=== PATIENT | female | born 1955 | race Caucasian/White ===

== ENCOUNTER 2024-02-04 14:01 | Inpatient (IN) | payer MEDICARE, OTHER ==
[~2024-02-04] VITALS: Ht 152.4 cm; Wt 84.5 kg
[2024-02-04 15:33] LABS: Urine Bacteria FEW /hpf (None Seen); Urine Blood 2+ /uL (Negative); Urine Clarity Turbid (Clear); Urine Color Colorless (Yellow); Urine Mucus FEW (None Seen); Urine Protein, UAD Negative (Negative); Urine Specific Gravity 1.009 (1.001-1.035); Urine Urobilinogen Normal (Negative); Urine WBC 7 /hpf (0 - 5); Urine pH 5.5 (5.0-9.0)
[2024-02-04] MEDS ORDERED: BACDST PO (15:42)
[2024-02-04] MEDS: SULFAMETHOX W/TRIMETH(800/160MG) DS TAB PO ONE (16:13)
[2024-02-04] MEDS: cloNIDine HCL 0.1 MG TAB PO ONE (16:34)
[2024-02-04] MEDS: SODIUM CHLORIDE 0.9% 1,000 ML IV ONE (17:06)
[2024-02-04 17:32] LABS: Basophils # (auto) 0 10 ^3/uL (0-0.2); Basophils % (auto) 0.4 % (0.0-2.0); Eosinophils # (auto) 0.1 10 ^3/uL (0-0.8); Eosinophils % (auto) 0.9 % (0.0-7.0); Hematocrit 49.5 % (36.0-46.0); Hemoglobin 16.6 g/dL (12.2-16.2); Lymphocytes # (auto) 1.4 10 ^3/uL (0.4-5.4); Lymphocytes % (auto) 15.7 % (10.0-50.0); Mean Corpuscular Hemoglobin 32.1 pg (28.0-32.0); Mean Corpuscular Hgb Conc. 33.5 g/dL (32.0-36.0); Mean Corpuscular Volume 95.5 fL (80.0-100.0); Monocytes # (auto) 0.5 10 ^3/uL (0-1.3); Monocytes % (auto) 5.2 % (0.0-12.0); Neutrophils # (auto) 7.2 10 ^3/uL (1.6-8.6); Neutrophils % (auto) 77.8 % (37.0-80.0); Nucleated Red Blood Cells % 0.1 %; Red Blood Cells 5.18 10^6/uL (4.0-5.20); Red Cell Distribution Width 14.2 % (11.8-14.3); White Blood Cell 9.2 10^3/uL (4.4-10.8)
[2024-02-04 17:37] LABS: Anion Gap 12 (5-15); Carbon Dioxide 21 mmol/L (20-30); Chloride 104 mmol/L (98-107); Potassium 4.7 mmol/L (3.5-5.1); Sodium 137 mmol/L (136-145)
[2024-02-04 17:39] LABS: Calcium 11.1 mg/dL (8.7-10.4)
[2024-02-04 17:43] LABS: BUN/Creatinine Ratio 21.7 (10.0-20.0); Blood Urea Nitrogen 18 mg/dL (9-23); Glucose 90 mg/dL (74-106)
[2024-02-04 17:48] VITALS: PULSE 74; RESP 19; O2SAT 98
[2024-02-04] MEDS ORDERED: DOCUSATE SOD 100 MG CAP PO PRN (21:30)
[2024-02-04] MEDS: FUROSEMIDE 40 MG/4 ML VIAL IV ONE (21:50)
[2024-02-04] MEDS: SODIUM CHLORIDE 0.9% 1,000 ML IV SCH (21:56)
[2024-02-04] MEDS: METOPROLOL TARTRATE 25 MG TAB PO SCH (22:56)
[2024-02-04] MEDS ORDERED: MORPHINE SULFATE INJ 2 MG/ml SYRG IV PRN (23:45)
[2024-02-04] MEDS ORDERED: NITROGLYCERIN 0.4 MG SL TAB SL PRN (23:45)
[2024-02-05] VITALS (8 sets, daily range): BP systolic 111–141; BP diastolic 56–71; PULSE 58–73; RESP 17–19; TEMP 97.6–98.5; O2SAT 92–98
[2024-02-05] MEDS: HYDROcodone-ACET 5/325MG TAB PO PRN (02:37)
[2024-02-05] MEDS ORDERED: HYDR-4902 PO (04:11)
[2024-02-05] MEDS ORDERED: CELE100C82 PO (04:12)
[2024-02-05] MEDS ORDERED: AMLO1TAB22 PO (04:12)
[2024-02-05 05:57] LABS: Basophils # (auto) 0 10 ^3/uL (0-0.2); Basophils % (auto) 0.4 % (0.0-2.0); Eosinophils # (auto) 0.1 10 ^3/uL (0-0.8); Eosinophils % (auto) 1.4 % (0.0-7.0); Hemoglobin 14.7 g/dL (12.2-16.2); Lymphocytes # (auto) 1.7 10 ^3/uL (0.4-5.4); Lymphocytes % (auto) 19.9 % (10.0-50.0); Mean Corpuscular Hemoglobin 32.4 pg (28.0-32.0); Mean Corpuscular Hgb Conc. 34.2 g/dL (32.0-36.0); Mean Corpuscular Volume 94.9 fL (80.0-100.0); Monocytes # (auto) 0.6 10 ^3/uL (0-1.3); Monocytes % (auto) 7.3 % (0.0-12.0); Nucleated Red Blood Cells % 0.2 %; Red Blood Cells 4.53 10^6/uL (4.0-5.20); Red Cell Distribution Width 14.4 % (11.8-14.3); White Blood Cell 8.5 10^3/uL (4.4-10.8)
[2024-02-05 06:16] LABS: Alanine Aminotransferase 12 U/L (7-40); Alkaline Phosphatase 94 U/L (46-116); Anion Gap 9 (5-15); BUN/Creatinine Ratio 12.2 (10.0-20.0); Blood Urea Nitrogen 11 mg/dL (9-23); Calcium 9.6 mg/dL (8.5-10.1); Carbon Dioxide 23 mmol/L (20-30); Chloride 105 mmol/L (98-107); Glucose 108 mg/dL (74-106); Potassium 3.3 mmol/L (3.5-5.1); Sodium 137 mmol/L (136-145)
[2024-02-05 06:18] LABS: Aspartate Aminotransferase 14 U/L (13-40); Bilirubin, Total 0.9 mg/dL (0.2-1.0); Total Protein 6.1 g/dL (5.7-8.2)
[2024-02-05] MEDS: amLODIPine BESYLATE 5 MG TAB PO SCH (09:06)
[2024-02-05] MEDS: levoFLOXacin 500MG 100 ML IV SCH (10:59)
[2024-02-05] MEDS: LORazepam 0.5 MG TAB PO PRN (14:41)
[2024-02-05] MEDS: CITALOPRAM HYDROBR 20 MG TAB PO ONE (23:28)
[2024-02-06] VITALS (8 sets, daily range): BP systolic 144–159; BP diastolic 66–79; PULSE 58–84; RESP 17–18; TEMP 97.2–98.3; O2SAT 94–98
[2024-02-06] MEDS: hydrALAZINE HCL 20 MG/ML VL IV PRN (06:15)
[2024-02-06] MEDS: ONDANSETRON HCL 4 MG/2 ML VIAL IV PRN (11:48)
[2024-02-06] MEDS: ACETAMINOPHEN 325 MG TAB PO PRN (12:45)
[2024-02-07] VITALS (7 sets, daily range): BP systolic 138–170; BP diastolic 66–84; PULSE 72–90; RESP 16–18; TEMP 97.1–98.6; O2SAT 95–97
[2024-02-07] MEDS ORDERED: CIPR-173 PO (08:37)
[2024-02-07] MEDS ORDERED: ONDANSETRON HCL 4 MG/2 ML VIAL IV ONE (16:15)
[2024-02-07] MEDS: ONDANSETRON ODT 4 MG TAB PO ONE (16:37)
== END 2024-02-07 15:30 | disposition home or self-care (01) | DRG 700 ==
LOC: EDBD 14:01 → ER 14:01 → TELE 23:35 → TELE-CENTR 02-05 01:45
PROVIDERS: ADMIT Nurse Practitioner Family; ATTEND Family Medicine
DX: T83.511A Infection and inflammatory reaction due to indwelling urethral catheter, initial encounter (principal); N39.0 Urinary tract infection, site not specified; I10 Essential (primary) hypertension; E83.52 Hypercalcemia; F32.A Depression, unspecified; E86.0 Dehydration; R33.9 Retention of urine, unspecified; F03.90 Unspecified dementia, unspecified severity, without behavioral disturbance, psychotic disturbance, mood disturbance, and anxiety; Z88.0 Allergy status to penicillin; Z80.1 Family history of malignant neoplasm of trachea, bronchus and lung
CPT/HCPCS: 36415; 74176; 80048; 80053; 81001; 85025; 87086; 87088; 87186; G0378; J1956; J2405; Q0162

== ENCOUNTER 2024-02-15 10:17 | Emergency (ER) | payer MEDICARE ==
[~2024-02-15] VITALS: Ht 152.4 cm; Wt 77.1 kg
[~2024-02-15 10:17] MED LIST: AMLO1TAB22 PO; BACDST PO; CELE100C82 PO; CIPR-173 PO; HYDR-4902 PO
[2024-02-15 12:54] VITALS: BP 138/65; PULSE 66; RESP 16; TEMP 97.8; O2SAT 98
== END 2024-02-15 12:59 | disposition home or self-care (01) ==
LOC: ER 10:17
DX: R33.9 Retention of urine, unspecified (principal); I10 Essential (primary) hypertension; F03.90 Unspecified dementia, unspecified severity, without behavioral disturbance, psychotic disturbance, mood disturbance, and anxiety; Z88.0 Allergy status to penicillin
CPT/HCPCS: 51702

== ENCOUNTER 2024-03-16 10:41 | Inpatient (IN) | payer MEDICARE, OTHER ==
[~2024-03-16] VITALS: Ht 152.4 cm; Wt 74.8 kg
[2024-03-16 11:49] LABS: Basophils # (auto) 0.1 10 ^3/uL (0-0.2); Basophils % (auto) 0.7 % (0.0-2.0); Eosinophils # (auto) 0.1 10 ^3/uL (0-0.8); Eosinophils % (auto) 0.8 % (0.0-7.0); Hematocrit 44.8 % (36.0-46.0); Hemoglobin 15.4 g/dL (12.2-16.2); Lymphocytes # (auto) 1.5 10 ^3/uL (0.4-5.4); Mean Corpuscular Hemoglobin 33.1 pg (28.0-32.0); Mean Corpuscular Hgb Conc. 34.3 g/dL (32.0-36.0); Mean Corpuscular Volume 96.4 fL (80.0-100.0); Monocytes # (auto) 0.7 10 ^3/uL (0-1.3); Monocytes % (auto) 7.4 % (0.0-12.0); Neutrophils # (auto) 6.7 10 ^3/uL (1.6-8.6); Neutrophils % (auto) 74.1 % (37.0-80.0); Platelet Count (auto) 300 10^3/uL (140-450); Red Blood Cells 4.65 10^6/uL (4.0-5.20); Red Cell Distribution Width 14.4 % (11.8-14.3)
[2024-03-16 12:31] LABS: Chloride 106 mmol/L (98-107); Potassium 3.4 mmol/L (3.5-5.1); Sodium 139 mmol/L (136-145)
[2024-03-16 12:32] LABS: Anion Gap 7 (5-15); Calcium 10.3 mg/dL (8.7-10.4); Carbon Dioxide 26 mmol/L (20-30)
[2024-03-16 12:37] LABS: BUN/Creatinine Ratio 11.2 (10.0-20.0); Blood Urea Nitrogen 10 mg/dL (9-23); Glucose 104 mg/dL (74-106)
[2024-03-16 15:03] LABS: Urine Bacteria FEW /hpf (None Seen); Urine Blood TRACE /uL (Negative); Urine Clarity Turbid (Clear); Urine Color Colorless (Yellow); Urine Protein, UAD Negative (Negative); Urine Specific Gravity 1.013 (1.001-1.035); Urine Urobilinogen Normal (Negative); Urine WBC 44 /hpf (0 - 5); Urine pH 6.5 (5.0-9.0)
[2024-03-16] MEDS ORDERED: ONDANSETRON HCL 4 MG/2 ML VIAL IV PRN (15:30)
[2024-03-16] MEDS ORDERED: ACETAMINOPHEN 325 MG TAB PO PRN (15:30)
[2024-03-16] MEDS: POTASSIUM CHL 20 Meq TABLET PO ONE (16:05)
[2024-03-16] MEDS: levoFLOXacin 500MG 100 ML IV ONE (16:06)
[2024-03-16 20:04] VITALS: BP 154/75; PULSE 72; PULSE 88; RESP 20; TEMP 97.9; O2SAT 98
[2024-03-16] MEDS ORDERED: CITA10TA5 PO (21:51)
[2024-03-17] VITALS (8 sets, daily range): BP systolic 117–185; BP diastolic 55–72; PULSE 67–83; RESP 17–20; TEMP 97.6–98.5; O2SAT 94–99
[2024-03-17 06:40] LABS: Basophils # (auto) 0.1 10 ^3/uL (0-0.2); Eosinophils # (auto) 0.2 10 ^3/uL (0-0.8); Eosinophils % (auto) 3.9 % (0.0-7.0); Hematocrit 40.7 % (36.0-46.0); Hemoglobin 13.8 g/dL (12.2-16.2); Lymphocytes # (auto) 1.8 10 ^3/uL (0.4-5.4); Lymphocytes % (auto) 30.4 % (10.0-50.0); Mean Corpuscular Hemoglobin 32.9 pg (28.0-32.0); Mean Corpuscular Volume 96.9 fL (80.0-100.0); Monocytes # (auto) 0.6 10 ^3/uL (0-1.3); Monocytes % (auto) 9.4 % (0.0-12.0); Neutrophils # (auto) 3.4 10 ^3/uL (1.6-8.6); Neutrophils % (auto) 55.3 % (37.0-80.0); Nucleated Red Blood Cells % 0.2 %; Platelet Count (auto) 244 10^3/uL (140-450); Red Cell Distribution Width 14.6 % (11.8-14.3); White Blood Cell 6.1 10^3/uL (4.4-10.8)
[2024-03-17 06:49] LABS: Chloride 111 mmol/L (98-107); Potassium 3.7 mmol/L (3.5-5.1); Sodium 141 mmol/L (136-145)
[2024-03-17 06:50] LABS: Anion Gap 3 (5-15); Carbon Dioxide 27 mmol/L (20-30)
[2024-03-17 06:51] LABS: Calcium 9.7 mg/dL (8.7-10.4)
[2024-03-17 06:55] LABS: BUN/Creatinine Ratio 14.9 (10.0-20.0); Blood Urea Nitrogen 13 mg/dL (9-23); Glucose 94 mg/dL (74-106)
[2024-03-17] MEDS: levoFLOXacin 500MG 100 ML IV SCH (10:21)
[2024-03-17] MEDS: amLODIPine BESYLATE 5 MG TAB PO SCH (10:22)
[2024-03-17] MEDS: HYDROcodone-ACET 5/325MG TAB PO PRN (22:57)
[2024-03-18] VITALS (7 sets, daily range): BP systolic 139–173; BP diastolic 69–89; PULSE 68–89; RESP 16–19; TEMP 98–98.9; O2SAT 95–97
[2024-03-18] MEDS: diphenhdrAMINE HCL 50 MG/1 ML VL IV PRN (01:52)
[2024-03-19] VITALS (7 sets, daily range): BP systolic 151–164; BP diastolic 68–90; PULSE 68–87; RESP 15–18; TEMP 97.9–98.8; O2SAT 96–98
[2024-03-19] MEDS: BACLOFEN 10 MG TAB PO ONE (01:32)
[2024-03-20] VITALS (7 sets, daily range): BP systolic 125–160; BP diastolic 66–83; PULSE 67–78; RESP 15–20; TEMP 36.8; O2SAT 94–99
[2024-03-20] MEDS ORDERED: CIPR-173 PO (12:08)
== END 2024-03-20 17:50 | disposition home or self-care (01) | DRG 700 ==
LOC: ER 10:41 → OVERFLOW 15:36 → WEST WING 19:48
PROVIDERS: ADMIT Nurse Practitioner; ATTEND Family Medicine
DX: T83.518A Infection and inflammatory reaction due to other urinary catheter, initial encounter (principal); E86.0 Dehydration; I10 Essential (primary) hypertension; N31.9 Neuromuscular dysfunction of bladder, unspecified; F03.90 Unspecified dementia, unspecified severity, without behavioral disturbance, psychotic disturbance, mood disturbance, and anxiety; R33.8 Other retention of urine; Z88.0 Allergy status to penicillin; Z80.1 Family history of malignant neoplasm of trachea, bronchus and lung
CPT/HCPCS: 36415; 80048; 81001; 85025; 87040; 87086; 87088; 87186; G0378; J1956

== ENCOUNTER 2024-04-13 02:03 | Emergency (ER) | payer MEDICARE ==
[~2024-04-13] VITALS: Ht 152.4 cm; Wt 77.2 kg
[~2024-04-13 02:03] MED LIST changes: +CITA10TA5 PO
[2024-04-13 02:38] VITALS: BP 148/66; PULSE 75; RESP 18; TEMP 98.8; O2SAT 96
[2024-04-13 03:19] LABS: Urine Bacteria None Seen /hpf (None Seen)
[2024-04-13 03:41] LABS: Urine Amorphous Crystal MOD /hpf (None Seen); Urine Blood TRACE /uL (Negative); Urine Clarity Turbid (Clear); Urine Color Colorless (Yellow); Urine Protein, UAD Negative (Negative); Urine Specific Gravity 1.009 (1.001-1.035); Urine Urobilinogen Normal (Negative); Urine WBC 14 /hpf (0 - 5); Urine pH 6.5 (5.0-9.0)
[2024-04-13] MEDS ORDERED: CIPR500T4 PO (04:26)
== END 2024-04-13 05:40 | disposition home or self-care (01) ==
LOC: ER 02:03
DX: N39.0 Urinary tract infection, site not specified (principal); R33.9 Retention of urine, unspecified; I10 Essential (primary) hypertension; Z46.6 Encounter for fitting and adjustment of urinary device; Z88.0 Allergy status to penicillin
CPT/HCPCS: 51702; 81001

== ENCOUNTER 2024-05-29 16:16 | Emergency (ER) | payer MEDICARE ==
[~2024-05-29] VITALS: Ht 152.4 cm; Wt 77.2 kg
[~2024-05-29 16:16] MED LIST changes: +CIPR500T4 PO
[2024-05-29 18:04] VITALS: BP 159/75; PULSE 79; RESP 16; TEMP 98.5; O2SAT 97
[2024-05-29 19:59] LABS: Urine Bacteria FEW /hpf (None Seen); Urine Blood 2+ /uL (Negative); Urine Clarity Turbid (Clear); Urine Color Colorless (Yellow); Urine Mucus FEW (None Seen); Urine Protein, UAD TRACE (Negative); Urine Specific Gravity 1.018 (1.001-1.035); Urine Urobilinogen Normal (Negative); Urine WBC 342 /hpf (0 - 5)
[2024-05-29] MEDS ORDERED: CIPR-173 PO (20:15)
== END 2024-05-29 20:32 | disposition home or self-care (01) ==
LOC: ER 16:16
DX: T83.098D Other mechanical complication of other urinary catheter, subsequent encounter (principal); I10 Essential (primary) hypertension; Z88.0 Allergy status to penicillin; Z79.899 Other long term (current) drug therapy
CPT/HCPCS: 51702; 81001

== ENCOUNTER 2024-07-14 00:05 | Emergency (ER) | payer MEDICARE ==
[~2024-07-14] VITALS: Ht 177.8 cm; Wt 77.2 kg
[2024-07-14 01:02] VITALS: BP 144/75; PULSE 92; RESP 17; O2SAT 98
--- NOTE | 2024-07-14 01:46 | ED.PDOC ---
Pascale. trauma (HPI) HPI Comments 68-year-old female who came to ER for fall injury. Patient states she was at home earlier, she felt dizzy and lightheaded, and she fell down hitting her head on the tile floor. Noted 6 cm laceration on her right frontal area. Denies any loss of consciousness, but patient felt nauseated and vomited 4 times. Patient is not on blood thinners Chief Complaint: Fall Injury Time Seen by MD: 01:45 Primary Care Provider: KENNY Aleman notes: Nurses Notes Allergies: Coded Allergies: Penicillins (Verified Allergy, Unknown, 02/04/24) Home Meds Active Scripts Ciprofloxacin Hcl (Cipro) 500 Mg Tab, 500 MG PO BID for 7 Days, #14 CAP Prov:SIENNA SHIPMAN DO 05/29/24 Ciprofloxacin Hcl (Ciprofloxacin Hcl) 500 Mg Tab, 1 TAB PO BID for 7 Days, #14 TAB Prov:PAT MAYP 04/13/24 Ciprofloxacin Hcl (Cipro) 500 Mg Tab, 1 TAB PO BID, #20 TAB Prov:ANDRE FAULKNER MD 03/20/24 Ciprofloxacin Hcl (Cipro) 500 Mg Tab, 1 TAB PO BID, #14 TAB Prov:ANDRE FAULKNER MD 02/07/24 Sulfamethoxazole W/Trimethopri (Bactrim Ds Tablet) 1 Tab Tb, 1 TAB PO BID for 7 Days, #14 TAB Prov:ZHANE BEAL MD 02/04/24 Reported Medications Citalopram Hydrobromide (Citalopram Hydrobromide) 10 Mg Tab, MG PO DAILY for 30 Days, MG 03/16/24 Amlodipine Besylate (Amlodipine Besylate) 5 Mg Tab, 5 MG PO DAILY for 30 Days, MG 02/05/24 Celecoxib (Celebrex) 100 Mg Cap, 100 MG PO DAILY for 30 Days, MG 02/05/24 Hydrocodone-Acetaminophen (Hydrocodone Bitartrate/AC 5-325 mg) 1 Tab Tab, 1 TAB PO Q6HP, TAB 02/05/24 Information Source: Patient, Relative Mode of Arrival: Wheelchair Severity: Moderate Timing: Minutes Duration: Since onset Prehospital treatment: None Location: Face (Right forehead) Location of laceration: Head (Right forehead) Mechanism: Fall Associated signs and symtoms: Headache Past Medical History PAST MEDICAL HISTORY: Dementia, HTN Surgical History: Denies all surgeries 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 Hx Family History Family History: Unknown Social History Smoker: Non-Smoker Alcohol: Denies ETOH Use Drugs: Denies Drug Use Lives In: Home Constitutional: denies: chills, diaphoresis, fatigue, fever, malaise, sweats, weakness, others EENTM: denies: blurred vision, double vision, ear bleeding, ear discharge, ear drainage, ear pain, ear ringing, eye pain, eye redness, hearing loss, mouth pain, mouth swelling, nasal discharge, nose bleeding, nose congestion, nose pain, photophobia, tearing, throat pain, throat swelling, voice changes, others Respiratory: denies: cough, hemoptysis, orthopnea, SOB at rest, shortness of breath, SOB with excertion, stridor, wheezing, others Cardiovascular: denies: chest pain, dizzy spells, diaphoresis, Dyspnea on exertion, edema, irregular heart beat, left arm pain, lightheadedness, palpitations, PND, syncope, others Gastrointestinal: denies: abdomen distended, abdominal pain, blood streaked bowels, constipated, diarrhea, dysphagia, difficulty swallowing, hematemesis, melena, nausea, poor appetite, poor fluid intake, rectal bleeding, rectal pain, vomiting, others Genitourinary: denies: abnormal vagina bleeding, burning, dyspareunia, dysuria, flank pain, frequency, hematuria, incontinence, pain, , vagina discha rge, urgency, others Neurological: reports: headache; denies: dizziness, fainting, left sided numbness, left sided weakness, numbness, paresthesia, pre-existing deficit, right sided numbness, right sided weakness, seizure, speech problems, tingling, tremors, weakness, others Musculoskeletal: denies: back pain, gout, joint pain, joint swelling, muscle pain, muscle stiffness, neck pain, others Integumetry: reports: laceration; denies: bruises, change in color, change in hair/nails, dryness, lesions, lumps, rash, wounds, others Allergic/Immunocompromised: denies: Difficulty Healing, Frequent Infections, Hives, Itching, others Hematologic/Lymphatic: denies: anemia, blood clots, easy bleeding, easy bruising, swollen glands, others Endocrine: denies: excessive hunger, excessive sweating, excessive thirst, excessive urination, flushing, intolerance to cold, intolerance to heat, unexplained weight gain, unexplained weight loss, others Psychiatric: denies: anxiety, bipolar disorder, depression, hopeless, panic disorder, schizophrenia, sleepless, suicidal, others Physical Exam General Appearance: No Apparent Distress, Normal HEENT: Normal ENT Inspection, Pharynx Normal, TMs Normal Neck: Full Range of Motion, Non-Tender, Normal, Normal Inspection Respiratory: Chest Non-Tender, Lungs Clear, No Accessory Muscle Use, No Respiratory Distress, Normal Breath Sounds Cardiovascular: No Edema, No JVD, No Murmur, No Gallop, Normal Peripheral Pulses, Regular Rate/Rhythm Breast Exam: Deferred Gastrointestinal: No Organomegaly, Non Tender, No Pulsatile Mass, Normal Bowel Sounds, Soft Genitalia: Deferred Pelvic: Deferred Rectal: Deferred Extremities: No calf tenderness, Normal capillary refill, Normal inspection, Normal range of motion, Non-tender, No pedal edema Musculoskeletal : Apperance: Normal Neurologic: Alert, polysomnography technician II-XII nml as Tested, No Motor Deficits, Normal Affect, Normal Mood, No Sensory Deficits Cerebellar Function: Normal Reflexes: Normal Skin: Dry, Normal Color, Warm Lymphatic: No Adenopathy Was a procedure done? Was a procedure done?: Yes Sedation Sedation?: No Laceration Repair : Location Right forehead Length 6 cm Anesthetic: Lidocaine Laceration Repair Prep: Betadine Laceration Repair Wound Comple: epidermis/dermis repair Laceration Repair: Number of sutures (12), Skin, SQ, Nylon Informed consent obtained: Yes Risks, benefits, and alternati: Yes Differential Diagnosis Multiple Trauma: Closed Head Injury, Fractures, Cerebral Contusion, Spine Injury, Hematoma, Laceration Neck Injury: Cervical Sprain, Cervical Strain X-Ray, Labs, Meds, VS Vital Signs Date Time Temp Pulse Resp B/P (MAP) Pulse Ox O2 Delivery O2 Flow Rate FiO2 07/14/24 01:02 98.4 92 17 144/75 (98) 98 Lab Test 07/14/24 00:53 Range/Units POC Glucose 125 H 70-106 mg/dl CT MAXILLOFACIAL WITHOUT FINDINGS: No discrete fracture. The nasal bone appears intact. The mandible appears unremarkable. The paranasal sinuses are well aerated. Orbital structures appear intact. Mastoid air cells are well aerated. IMPRESSION: No acute findings. Head laceration with repair. His CT was normal. Time of 1ST Reevaluation: 01:42 Reevaluation 1ST: Unchanged Patient Education/Counseling: Diagnosis, Treatment Family Education/Counseling: Diagnosis, Treatment Departure 1 Departure Time of Disposition: 05:44 Impression: Primary Impression: Ground-level fall Additional Impression: Forehead laceration Qualified Codes: S01.81XA - Laceration without foreign body of other part of head, initial encounter Disposition: HOME / SELF CARE / HOMELESS Condition: Stable Additional Instructions: Reassessed patient, vital signs stable. Denies any new symptoms. Patient is able to tolerate PO and ambulate/be mobile at their baseline without concern. Risks and benefits of all medications given or prescribed, if any, discussed. All lab work, imaging and diagnostic studies were reviewed by me. The patient was counseled extensively on my clinical impression, diagnosis, expected course of the disease, and plan, including their follow-up care. Will discharge patient. Patient instructed to follow up with Primary Care Physician within 24-48 hours. Strict return precautions given for further exacerbation of symptoms or for new symptoms. The patient was given the opportunity to ask questions and all questions were answered by myself and the nursing/tech staff. Patient is in agreement with the care plan. The patient verbally expressed understanding of the discharge instructions, including the reasons to return to the Emergency Department. Return to the emergency room in two days for wound check, seven days for suture removal Discharged With: Self Critical Care Note Critical Care Time?: No Stability Stability form required: No Heart Score Heart Score: Heart Score Response (Comments) Value History N/A 0 EKG N/A 0 Age N/A 0 Risk Factors N/A 0 Troponin N/A 0 Total 0 I personally scribed for ROSSI WEST MD ([email or web address]) on 07/14/24 at 01:46. Chapis ctronically submitted by Surya Hernandez ([email or web address]). I personally scribed for ROSSI WEST MD ([email or web address]) on 07/14/24 at 04:44. Electronically submitted by Surya Hernandez ([email or web address]). ROSSI WEST MD Jul 14, 2024 01:46
--- NOTE | 2024-07-14 04:42 | DVH ---
CT MAXILLOFACIAL WITHOUT INDICATION: FALL EXAM DATE: 07/14/2024 02:35 AM COMPARISON: None RADIATION DOSE: DLP: 1257.8 mGy*cm Technique: Using the CT scanner, contiguous noncontrast scans were of the maxillofacial region. Coron al and sagittal reformatted images were then generated. All CT scans at this medical facility are performed using dose modulation techniques as appropriate t o a performed exam including the following: Automated exposure control was utilized; adjustment of th e MA and/or KV according to patient size; and use of iterative reconstruction technique. FINDINGS: No discrete fracture. The nasal bone appears intact. The mandible appears unremarkable. The parana ele sinuses are well aerated. Orbital structures appear intact. Mastoid air cells are well aerated. IMPRESSION: No acute findings.
== END 2024-07-14 06:09 | disposition home or self-care (01) ==
LOC: ER 00:05
DX: S01.81XA Laceration without foreign body of other part of head, initial encounter (principal); I10 Essential (primary) hypertension; R42 Dizziness and giddiness; F03.90 Unspecified dementia, unspecified severity, without behavioral disturbance, psychotic disturbance, mood disturbance, and anxiety; Z79.1 Long term (current) use of non-steroidal anti-inflammatories (NSAID); Z79.899 Other long term (current) drug therapy; Z88.0 Allergy status to penicillin; W18.30XA Fall on same level, unspecified, initial encounter; Y93.89 Activity, other specified; Y92.89 Other specified places as the place of occurrence of the external cause; Y99.8 Other external cause status
CPT/HCPCS: 12014; 70486; 82962

== ENCOUNTER 2024-07-23 15:20 | Emergency (ER) | payer MEDICARE ==
[~2024-07-23] VITALS: Ht 152.4 cm; Wt 77.0 kg
--- NOTE | 2024-07-23 16:13 | ED.PDOC ---
General HPI Comments 68 year old female presents to the ED with chief complaint of urinary retention and suture removal. Patient reports that she has been unable to urinate for the past 24 hours and believes she has a UTI. Patient relays that she had a similar problem in the past and needed to have a Hale catheter placed and be treated for a UTI. Patient states she also has sutures to her face from a previous fall 10 days ago and requests them to be removed as it has been 10 days since the sutures were placed. Patient denies any dysuria, abdominal pain, fever, chills, dizziness, chest pain, or hematuria. Chief Complaint: Urinary Time Seen by MD: 16:11 Primary Care Provider: KENNY Aleman notes: Nurses Notes, Medications, Allergies Allergies: Coded Allergies: Penicillins (Verified Allergy, Unknown, 02/04/24) Home Meds Active Scripts Ciprofloxacin Hcl (Cipro) 500 Mg Tab, 500 MG PO BID for 7 Days, #14 CAP Prov:SIENNA SHIPMAN DO 05/29/24 Ciprofloxacin Hcl (Ciprofloxacin Hcl) 500 Mg Tab, 1 TAB PO BID for 7 Days, #14 TAB Prov:PAT MAY 04/13/24 Ciprofloxacin Hcl (Cipro) 500 Mg Tab, 1 TAB PO BID, #20 TAB Prov:ANDRE FAULKNER MD 03/20/24 Ciprofloxacin Hcl (Cipro) 500 Mg Tab, 1 TAB PO BID, #14 TAB Prov:ANDRE FAULKNER MD 02/07/24 Sulfamethoxazole W/Trimethopri (Bactrim Ds Tablet) 1 Tab Tb, 1 TAB PO BID for 7 Days, #14 TAB Prov:ZHANE BEAL MD 02/04/24 Reported Medications Citalopram Hydrobromide (Citalopram Hydrobromide) 10 Mg Tab, MG PO DAILY for 30 Days, MG 03/16/24 Amlodipine Besylate (Amlodipine Besylate) 5 Mg Tab, 5 MG PO DAILY for 30 Days, MG 02/05/24 Celecoxib (Celebrex) 100 Mg Cap, 100 MG PO DAILY for 30 Days, MG 02/05/24 Hydrocodone-Acetaminophen (Hydrocodone Bitartrate/AC 5-325 mg) 1 Tab Tab, 1 TAB PO Q6HP, TAB 02/05/24 Information Source: Patient, Relative (Son) Mode of Arrival: Ambulatory Severity: Moderate Inability to void: Complete Timing: Days Duration: Since onset Has not urinated for: Hours Prehospital treatment: None Onset: Spontaneous Symptoms: Inability to void History of: UTI Location: None Modifying factors: None associated signs and symptoms: Inability to Void Past Medical History PAST MEDICAL HISTORY: Dementia, HTN, UTI'S Surgical History: Denies all surgeries 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 ENGINEER CONDUCTOR Hx Family History Family History: Unknown Social History Smoker: Non-Smoker Alcohol: Denies ETOH Use Drugs: Denies Drug Use Lives In: Home Constitutional: denies: chills, diaphoresis, fatigue, fever, malaise, sweats, weakness, others EENTM: denies: blurred vision, double vision, ear bleeding, ear discharge, ear drainage, ear pain, ear ringing, eye pain, eye redness, hearing loss, mouth pain, mouth swelling, nasal discharge, nose bleeding, nose congestion, nose pain, photophobia, tearing, throat pain, throat swelling, voice changes, others Respiratory: denies: cough, hemoptysis, orthopnea, SOB at rest, shortness of breath, SOB with excertion, stridor, wheezing, others Cardiovascular: denies: chest pain, dizzy spells, diaphoresis, Dyspnea on exertion, edema, irregular heart beat, left arm pain, lightheadedness, palpitations, PND, syncope, others Gastrointestinal: denies: abdomen distended, abdominal pain, blood streaked bowels, constipated, diarrhea, dysphagia, difficulty swallowing, hematemesis, melena, nausea, poor appetite, poor fluid intake, rectal bleeding, rectal pain, vomiting, others Genitourinary: reports: others (urinary retention); denies: abnormal vagina bleeding, burning, dyspareunia, dysuria, flank pain, frequency, hematuria, incontinence, pain, , vagina discharge, urgency Neurological: denies: dizziness, fainting, headache, left sided numbness, left sided weakness, numbness, paresthesia, pre-existing deficit, right sided numbness, right sided weakness, seizure, speech problems, tingling, tremors, weakness, others Musculoskeletal: denies: back pain, gout, joint pain, joint swelling, muscle pain, muscle stiffness, neck pain, others Integumetry: denies: bruises, change in color, change in hair/nails, dryness, laceration, lesions, lumps, rash, wounds, others Allergic/Immunocompromised: denies: Difficulty Healing, Frequent Infections, Hives, Itching, others Hematologic/Lymphatic: denies: anemia, blood clots, easy bleeding, easy bruising, swollen glands, others Endocrine: denies: excessive hunger, excessive sweating, excessive thirst, excessive urination, flushing, intolerance to cold, intolerance to heat, unexplained weight gain, unexplained weight loss, others Psychiatric: denies: anxiety, bipolar disorder, depression, hopeless, panic disorder, schizophrenia, sleepless, suicidal, others All Other Systems: Reviewed and Negative Physical Exam General Appearance: Mild Distress, Obese HEENT: Normal ENT Inspection, PERRL/EOMI Neck: Full Range of Motion, Non-Tender, Normal, Normal Inspection Respiratory: Chest Non-Tender, Lungs Clear, No Accessory Muscle Use, No Respiratory Distress, Normal Breath Sounds Cardiovascular: No Edema, No JVD, No Murmur, No Gallop, Normal Peripheral Pulses, Regular Rate/Rhythm Breast Exam: Deferred Gastrointestinal: No Organomegaly, No Pulsatile Mass, Normal Bowel Sounds, Soft, Suprapubic, Tenderness Genitalia: Deferred Pelvic: Deferred Rectal: Deferred Extremities: No calf tenderness, Normal capillary refill, Normal inspection, Normal range of motion, Non-tender, No pedal edema Neurologic: Alert, casting technician II-XII nml as Tested, No Motor Deficits, Normal Affect, Normal Mood, No Sensory Deficits Cerebellar Function: Normal Reflexes: Normal Skin: Dry, Lacerations (For head laceration from a fall 10 years ago healing well may have sutures removed), Normal Color, Warm Peripheral Pulses: 1+ carotid (R), 1+ carotid (L) Lymphatic: No Adenopathy Was a procedure done? Was a procedure done?: Yes Sedation Sedation?: No Other Procedure Procedure Ten days ago the patient fell and lacerated her forehead sutures were done Today in the emergency department for another reason patient presented with a suture that need to be removed Sutures removed no issues Differential Diagnosis Kidney stone (Female): Urinary obstruction Kidney stone (Male): N/A Penile/Scrotal: N/A Urinary Problem (Male): N/A Urinary Problem (Female): Urinary retention, UTI X-Ray, Labs, Meds, VS Vital Signs Date Time Temp Pulse Resp B/P (MAP) Pulse Ox O2 Delivery O2 Flow Rate FiO2 07/23/24 15:57 98.0 86 18 136/76 (96) 97 Lab Test 07/23/24 17:07 07/23/24 16:17 Range/Units White Blood Count 12.5 H 4.4-10.8 10^3/uL Red Blood Count 4.58 4.0-5.20 10^6/uL Hemoglobin 15.0 12.2-16.2 g/dL Hematocrit 46.2 H 36.0-46.0 % Mean Corpuscular Volume 100.9 H 80.0-100.0 fL Mean Corpuscular Hemoglobin 32.7 H 28.0-32.0 pg Mean Corpuscular Hemoglobin Concent 32.4 32.0-36.0 g/dL Red Cell Distribution Width 13.5 11.8-14.3 % Platelet Count 289 140-450 10^3/uL Mean Platelet Volume 7.9 6.9-10.8 fL Neutrophils (%) (Auto) 82.8 H 37.0-80.0 % Lymphocytes (%) (Auto) 11.8 10.0-50.0 % Monocytes (%) (Auto) 4.7 0.0-12.0 % Eosinophils (%) (Auto) 0.4 0.0-7.0 % Basophils (%) (Auto) 0.3 0.0-2.0 % Neutrophils # (Auto) 10.4 H 1.6-8.6 10 ^3/uL Lymphocytes # (Auto) 1.5 0.4-5.4 10 ^3/uL Monocytes # (Auto) 0.6 0-1.3 10 ^3/uL Eosinophils # (Auto) 0 0-0.8 10 ^3/uL Basophils # (Auto) 0 0-0.2 10 ^3/uL Nucleated Red Blood Cells 0.0 % Sodium Level 140 136-145 mmol/L Potassium Level 3.7 3.5-5.1 mmol/L Chloride Level 107 98-107 mmol/L Carbon Dioxide Level 25 20-31 mmol/L Anion Gap 8 5-15 Blood Urea Nitrogen 17 9-23 mg/dL Creatinine 0.82 0.550-1.02 mg/dL Glomerular Filtration Rate Calc 79 >90 mL/min BUN/Creatinine Ratio 20.7 H 10.0-20.0 Serum Glucose 125 H 74-106 mg/dL Calcium Level 10.7 H 8.7-10.4 mg/dL Magnesium Level 2.2 1.6-2.6 mg/dL Total Bilirubin 0.9 0.2-1.0 mg/dL Aspartate Amino Transferase (AST) 21 13-40 U/L Alanine Aminotransferase (ALT) 32 7-40 U/L Alkaline Phosphatase 119 H 46-116 U/L Total Protein 7.0 5.7-8.2 g/dL Albumin 4.5 3.2-4.8 g/dL Lipase 38 12-53 U/L Urine Color Light-yellow Yellow Urine Clarity Clear Clear Urine pH 6.0 5.0-9.0 Urine Specific [place] 1.012 1.001-1.035 Urine Protein Negative Negative Urine Ketones Negative Negative Urine Blood Negative Negative /uL Urine Nitrite Negative Negative Urine Bilirubin Negative Negative Urine Urobilinogen Normal Negative mg/dL Urine Leukocyte Esterase Negative Negative /uL Urine RBC 2 0 - 4 /hpf Urine WBC 2 0 - 5 /hpf Urine Squamous Epithelial Cells None seen <5 /hpf Urine Bacteria None seen None Seen /hpf Urine Glucose Normal Normal mg/dL Current Medications Medications (Trade) Dose Ordered Sig/Penelope Route Start Time Stop Time Status Last Admin Ceftriaxone Sodium 50 ml @ 100 mls/hr ONCE ONCE IV 07/23/24 17:45 07/23/24 18:14 07/23/24 17:59 X-Ray, Labs, Meds, VS Comment Course in the emergency department eventful patient came in because of a urinary retention and also for suture removal on the laceration Patient has history of hypertension and depression A Hale catheter was inserted and large amount of urine [place] [id number] with 82 0.5 and microcytosis CMP is normal except for sugar of 125 Lipase 38 Urine negative Magnesium 2.2 Patient will have a Hale catheter and leg bag which she will keep for few days and will follow up for removal Time of 1ST Reevaluation: 17:11 Reevaluation 1ST: Unchanged Time of 2ND Reevaluation: 18:06 Reevaluation 2ND: Improved Patient Education/Counseling: Diagnosis, Treatment Family Education/Counseling: Diagnosis, Treatment Additional Information - I reviewed the following notes from patient's past medical encounters: - The following tests were ordered, and results were reviewed by me: (Labs, X- Ray, EKG) - Additional information was gathered from interviewing the following independent Historian: (Family, Other Providers, EMT) - I reviewed and agreed with the following test results read by other provider: (X-ray, CT, US) - I discussed treatments and results with medical personnel and: (consultants, family) Departure 1 Departure Time of Disposition: 18:07 Impression: Primary Impression: Acute urinary retention Additional Impression: History of hypertension Disposition: HOME / SELF CARE / HOMELESS Condition: Fair Additional Instructions: Push fluids and follow up with the urologist e-Prescriptions Ciprofloxacin Hcl (Ciprofloxacin Hcl) 500 Mg Tab 1 TAB PO BID for 7 Days, #14 TAB Prov: ALFONSO PAT MD 07/23/24 Discharged With: Self, Spouse Critical Care Note Critical Care Time?: No Stability Stability form required: No Heart Score Heart Score: Heart Score Response (Comments) Value History N/A 0 EKG N/A 0 Age >65 2 Risk Factors 1 or 2 risk factors 1 Troponin N/A 0 Total 3 I personally scribed for ALFONSO PAT MD ([email or web address]) on 07/23/24 at 16:13. Electronically submitted by Moi Burns ([email or web address]). ALFONSO PAT MD Jul 23, 2024 16:13
[2024-07-23] MEDS: SODIUM CHLORIDE 0.9% 1,000 ML IV ONE (16:26)
[2024-07-23 16:33] LABS: Urine Bacteria None Seen /hpf (None Seen)
[2024-07-23 16:37] LABS: Urine Blood Negative /uL (Negative); Urine Clarity Clear (Clear); Urine Color Light-Yellow (Yellow); Urine Protein, UAD Negative (Negative); Urine Specific Gravity 1.012 (1.001-1.035); Urine Urobilinogen Normal (Negative); Urine WBC 2 /hpf (0 - 5)
[2024-07-23 17:50] LABS: Basophils # (auto) 0 10 ^3/uL (0-0.2); Basophils % (auto) 0.3 % (0.0-2.0); Eosinophils # (auto) 0 10 ^3/uL (0-0.8); Eosinophils % (auto) 0.4 % (0.0-7.0); Hematocrit 46.2 % (36.0-46.0); Lymphocytes # (auto) 1.5 10 ^3/uL (0.4-5.4); Lymphocytes % (auto) 11.8 % (10.0-50.0); Mean Corpuscular Hemoglobin 32.7 pg (28.0-32.0); Mean Corpuscular Hgb Conc. 32.4 g/dL (32.0-36.0); Mean Corpuscular Volume 100.9 fL (80.0-100.0); Monocytes # (auto) 0.6 10 ^3/uL (0-1.3); Monocytes % (auto) 4.7 % (0.0-12.0); Neutrophils # (auto) 10.4 10 ^3/uL (1.6-8.6); Neutrophils % (auto) 82.8 % (37.0-80.0); Platelet Count (auto) 289 10^3/uL (140-450); Red Blood Cells 4.58 10^6/uL (4.0-5.20); Red Cell Distribution Width 13.5 % (11.8-14.3); White Blood Cell 12.5 10^3/uL (4.4-10.8)
[2024-07-23] MEDS: cefTRIAXone 1GM/50ML D5W 50 ML IV ONE (17:59)
[2024-07-23 18:00] VITALS: PULSE 77; RESP 17; O2SAT 94
[2024-07-23 18:01] LABS: Alanine Aminotransferase 32 U/L (7-40); Albumin 4.5 g/dL (3.2-4.8); Anion Gap 8 (5-15); Aspartate Aminotransferase 21 U/L (13-40); BUN/Creatinine Ratio 20.7 (10.0-20.0); Blood Urea Nitrogen 17 mg/dL (9-23); Carbon Dioxide 25 mmol/L (20-31); Chloride 107 mmol/L (98-107); Lipase 38 U/L (12-53); Magnesium 2.2 mg/dL (1.6-2.6); Potassium 3.7 mmol/L (3.5-5.1); Sodium 140 mmol/L (136-145)
[2024-07-23 18:02] LABS: Bilirubin, Total 0.9 mg/dL (0.2-1.0)
[2024-07-23 18:03] LABS: Alkaline Phosphatase 119 U/L (46-116); Calcium 10.7 mg/dL (8.7-10.4); Glucose 125 mg/dL (74-106)
[2024-07-23 18:05] VITALS: BP 118/54; PULSE 77; RESP 17; TEMP 98; O2SAT 94
[2024-07-23] MEDS ORDERED: CIPR500T4 PO (18:09)
== END 2024-07-23 18:45 | disposition home or self-care (01) ==
LOC: ER 15:20
DX: R33.9 Retention of urine, unspecified (principal); I10 Essential (primary) hypertension; F03.90 Unspecified dementia, unspecified severity, without behavioral disturbance, psychotic disturbance, mood disturbance, and anxiety; Z79.1 Long term (current) use of non-steroidal anti-inflammatories (NSAID); Z79.899 Other long term (current) drug therapy; Z88.0 Allergy status to penicillin
CPT/HCPCS: 36415; 51702; 80053; 81001; 83690; 83735; 85025; 87086; 87088; 87186; 96365; 99284; J0696

== ENCOUNTER 2025-04-28 11:31 | Emergency (ER) | payer MEDICARE, OTHER ==
[~2025-04-28] VITALS: Ht 152.4 cm; Wt 77.0 kg
--- NOTE | 2025-04-28 11:59 | ED.PDOC ---
History of Present Illness HPI Comments [age] year female brought by paramedics because she has been having difficulty urinating for the past 12 hours. She last had similar symptom many months ago for which she was admitted for possible sepsis. Patient denies shortness a breath chest pain. Denies abdominal pain nausea vomiting. She is bed ridden. She does require help stand. Denies any other symptoms. Chief Complaint: Urinary Time Seen by MD: 11:44 Primary Care Provider: KENNY Reviewed Notes: Nurses Notes, Medications, Allergies Allergies: Coded Allergies: Penicillins (Verified Allergy, Unknown, 02/04/24) Home Meds Active Scripts Nitrofurantoin Monohydrate Mac (Macrobid) 100 Mg Cap, 100 MG PO BID for 10 Days, #20 CAP Prov:ZHANE BEAL MD 04/28/25 Ciprofloxacin Hcl (Ciprofloxacin Hcl) 500 Mg Tab, 1 TAB PO BID for 7 Days, #14 TAB Prov:ALFONSO PAT MD 07/23/24 Ciprofloxacin Hcl (Cipro) 500 Mg Tab, 500 MG PO BID for 7 Days, #14 CAP Prov:SIENNA SHIPMAN DO 05/29/24 Ciprofloxacin Hcl (Ciprofloxacin Hcl) 500 Mg Tab, 1 TAB PO BID for 7 Days, #14 TAB Prov:PAT MAY 04/13/24 Ciprofloxacin Hcl (Cipro) 500 Mg Tab, 1 TAB PO BID, #20 TAB Prov:ANDRE FAULKNER MD 03/20/24 Ciprofloxacin Hcl (Cipro) 500 Mg Tab, 1 TAB PO BID, #14 TAB Prov:ANDRE FAULKNER MD 02/07/24 Sulfamethoxazole W/Trimethopri (Bactrim Ds Tablet) 1 Tab Tb, 1 TAB PO BID for 7 Days, #14 TAB Prov:ZHANE BEAL MD 02/04/24 Reported Medications Citalopram Hydrobromide (Citalopram Hydrobromide) 10 Mg Tab, MG PO DAILY for 30 Days, MG 03/16/24 Amlodipine Besylate (Amlodipine Besylate) 5 Mg Tab, 5 MG PO DAILY for 30 Days, MG 02/05/24 Celecoxib (Celebrex) 100 Mg Cap, 100 MG PO DAILY for 30 Days, MG 02/05/24 Hydrocodone-Acetaminophen (Hydrocodone Bitartrate/AC 5-325 mg) 1 Tab Tab, 1 TAB PO Q6HP, TAB 02/05/24 Information Source: Patient, Emergency Med Personnel Mode of Arrival: EMS Severity: Moderate Timing: Hours Duration: Since onset Past Medical History PAST MEDICAL HISTORY: Dementia, HTN, UTI'S Surgical History: Denies all surgeries NURSE ORTHO History: Denies all NURSE ORTHO Hx Family History Family History: Unknown Social History Smoker: Non-Smoker Alcohol: Denies ETOH Use Drugs: Denies Drug Use Lives In: Home Constitutional: denies: chills, diaphoresis, fatigue, fever, malaise, sweats, weakness, others EENTM: denies: blurred vision, double vision, ear bleeding, ear discharge, ear drainage, ear pain, ear ringing, eye pain, eye redness, hearing loss, mouth pain, mouth swelling, nasal discharge, nose bleeding, nose congestion, nose pain, photophobia, tearing, throat pain, throat swelling, voice changes, others Respiratory: denies: cough, hemoptysis, orthopnea, SOB at rest, shortness of breath, SOB with excertion, stridor, wheezing, others Cardiovascular: denies: chest pain, dizzy spells, diaphoresis, Dyspnea on exertion, edema, irregular heart beat, left arm pain, lightheadedness, palpitations, PND, syncope, others Gastrointestinal: denies: abdomen distended, abdominal pain, blood streaked bowels, constipated, diarrhea, dysphagia, difficulty swallowing, hematemesis, melena, nausea, poor appetite, poor fluid intake, rectal bleeding, rectal pain, vomiting, others Genitourinary: reports: others (Urinary retention); denies: abnormal vagina bleeding, burning, dyspareunia, dysuria, flank pain, frequency, hematuria, incontinence, pain, , vagina discharge, urgency Neurological: denies: dizziness, fainting, headache, left sided numbness, left sided weakness, numbness, paresthesia, pre-existing deficit, right sided numbness, right sided weakness, seizure, speech problems, tingling, tremors, weakness, others Musculoskeletal: denies: back pain, gout, joint pain, joint swelling, muscle pain, muscle stiffness, neck pain, others Integumetry: denies: bruises, change in color, change in hair/nails, dryness, laceration, lesions, lumps, rash, wounds, others Allergic/Immunocompromised: denies: Difficulty Healing, Frequent Infections, Hives, Itching, others Hematologic/Lymphatic: denies: anemia, blood clots, easy bleeding, easy bruising, swollen glands, others Endocrine: denies: excessive hunger, excessive sweating, excessive thirst, excessive urination, flushing, intolerance to cold, intolerance to heat, unexplained weight gain, unexplained weight loss, others Psychiatric: denies: anxiety, bipolar disorder, depression, hopeless, panic disorder, schizophrenia, sleepless, suicidal, others Physical Exam General Appearance: Moderate Distress HEENT: Normal ENT Inspection, Pharynx Normal, TMs Normal Neck: Full Range of Motion, Non-Tender, Normal, Normal Inspection Respiratory: Chest Non-Tender, Lungs Clear, No Accessory Muscle Use, No Respiratory Distress, Normal Breath Sounds Cardiovascular: No Edema, No JVD, No Murmur, No Gallop, Normal Peripheral Pulses, Regular Rate/Rhythm Breast Exam: Deferred Gastrointestinal: No Organomegaly, Non Tender, No Pulsatile Mass, Normal Bowel Sounds, Soft Genitalia: Deferred Pelvic: Deferred Rectal: Deferred Extremities: No calf tenderness, No pedal edema Musculoskeletal : Apperance: Normal Neurologic: Alert Cerebellar Function: NOT DONE Reflexes: NOT DONE Skin: Normal Color Peripheral Pulses: 3+ Radial (R), 3+ Radial (L) Lymphatic: No Adenopathy Was a procedure done? Was a procedure done?: No Differential Dx Considerations may include: Anemia Electrolyte imbalance X-Ray, Labs, Meds, VS Vital Signs Date Time Temp Pulse Resp B/P (MAP) Pulse Ox O2 Delivery O2 Flow Rate FiO2 04/28/25 14:00 69 12 165/93 (117) 98 04/28/25 13:11 74 10 168/86 (113) 98 04/28/25 12:00 98.3 73 18 161/75 (103) 96 98.3 04/28/25 12:00 73 18 96 Room Air* 0 21 04/28/25 11:50 71 20 150/70 (96) 97 04/28/25 11:47 98.3 91 16 155/86 97 98.3 Lab Test 04/28/25 13:04 04/28/25 12:36 04/28/25 12:10 Range/Units White Blood Count 8.9 4.4-10.8 10^3/uL Red Blood Count 5.34 H 4.0-5.20 10^6/uL Hemoglobin 17.1 H 12.2-16.2 g/dL Hematocrit 50.0 H 36.0-46.0 % Mean Corpuscular Volume 93.7 80.0-100.0 fL Mean Corpuscular Hemoglobin 32.0 28.0-32.0 pg Mean Corpuscular Hemoglobin Concent 34.2 32.0-36.0 g/dL Red Cell Distribution Width 13.0 11.8-14.3 % Platelet Count 267 140-450 10^3/uL Mean Platelet Volume 7.5 6.9-10.8 fL Neutrophils (%) (Auto) 78.6 37.0-80.0 % Lymphocytes (%) (Auto) 14.6 10.0-50.0 % Monocytes (%) (Auto) 5.0 0.0-12.0 % Eosinophils (%) (Auto) 1.3 0.0-7.0 % Basophils (%) (Auto) 0.5 0.0-2.0 % Neutrophils # (Auto) 7.0 1.6-8.6 10 ^3/uL Lymphocytes # (Auto) 1.3 0.4-5.4 10 ^3/uL Monocytes # (Auto) 0.4 0-1.3 10 ^3/uL Eosinophils # (Auto) 0.1 0-0.8 10 ^3/uL Basophils # (Auto) 0 0-0.2 10 ^3/uL Nucleated Red Blood Cells 0.0 % Urine Color Colorless Yellow Urine Clarity Turbid H Clear Urine pH 6.5 5.0-9.0 Urine Specific [place] 1.015 1.001-1.035 Urine Protein Negative Negative Urine Ketones Negative Negative Urine Blood Negative Negative /uL Urine Nitrite 1+ H Negative Urine Bilirubin Negative Negative Urine Urobilinogen Normal Negative mg/dL Urine Leukocyte Esterase 3+ Negative /uL Urine RBC 6 0 - 4 /hpf Urine Microscopic WBC 22 H 0-5 /HPF Urine Squamous Epithelial Cells Few <5 /hpf Urine Bacteria Few H None Seen /hpf Urine Mucus Few None Seen Urine Glucose Normal Normal mg/dL Sodium Level 138 136-145 mmol/L Potassium Level 3.9 3.5-5.1 mmol/L Chloride Level 103 98-107 mmol/L Carbon Dioxide Level 26 20-31 mmol/L Anion Gap 9 5-15 Blood Urea Nitrogen 9 9-23 mg/dL Creatinine 0.97 0.550-1.02 mg/dL Glomerular Filtration Rate Calc 64 >90 mL/min BUN/Creatinine Ratio 9.3 L 10.0-20.0 Serum Glucose 98 74-106 mg/dL Calcium Level 9.7 8.7-10.4 mg/dL Troponin I High Sensitivity 5 </=34 ng/L Current Medications Medications (Trade) Dose Ordered Sig/Penelope Route Start Time Stop Time Status Last Admin Ceftriaxone Sodium 50 ml @ 100 mls/hr ONCE ONCE IV 04/28/25 15:00 04/28/25 15:29 DC 04/28/25 15:44 Patient alert. Vitals stable. Came in because of urinary retention. Answering questions. Blood pressure slightly elevated. Placed a Hale catheter. Possible urosepsis. Reviewed her previous visit. Explained to the patient. Continue monitoring. Time of 1ST Reevaluation: 11:58 Reevaluation 1ST: Unchanged Patient Education/Counseling: Diagnosis, Treatment, Prognosis Family Education/Counseling: No Family Present SEPSIS Sepsis Screen Date sepsis recognized/suspect: Apr 28, 2025 Time Sepsis recognized/suspect: 1149 Recent Procedure: No On Antibiotic Therapy: No Respiratory Rate >20: No Heart Rate >90: Yes Temp<36 C (96.8 F) or >38.3 C: No SBP <90 or MAP <65 mmHG: No New Acute Mental Status Change: No Is the patient on CPAP, BIPAP,: No Physician Orders Chest Portable (04/28/25 11:44) Hale Catheters (04/28/25 ) Vital Signs Date Time Temp Pulse Resp B/P (MAP) Pulse Ox O2 Delivery O2 Flow Rate FiO2 04/28/25 14:00 69 12 165/93 (117) 98 04/28/25 13:11 74 10 168/86 (113) 98 04/28/25 12:00 98.3 73 18 161/75 (103) 96 98.3 04/28/25 12:00 73 18 96 Room Air* 0 21 04/28/25 11:50 71 20 150/70 (96) 97 04/28/25 11:47 98.3 91 16 155/86 97 98.3 Laboratory Tests Test 04/28/25 13:04 White Blood Count 8.9 10^3/uL (4.4-10.8) Medications Medications Dose Ordered Sig/Penelope Route Start Time Stop Time Status Last Admin Dose Admin Ceftriaxone Sodium 50 ml @ 100 mls/hr ONCE ONCE IV 04/28/25 15:00 04/28/25 15:29 DC 04/28/25 15:44 Departure 1 Departure Time of Disposition: 11:59 Impression: Primary Impression: Urinary tract infection Qualified Codes: N30.00 - Acute cystitis without hematuria Disposition: ADMITTED INPATIENT Admit to: Med Surg Condition: Guarded e-Prescriptions Nitrofurantoin Monohydrate Mac (Macrobid) 100 Mg Cap 100 MG PO BID for 10 Days, #20 CAP Prov: ZHANE BEAL MD 04/28/25 Discharged With: Self Critical Care Note Critical Care Time?: No Stability Stability form required: No Heart Score Heart Score: Heart Score Response (Comments) Value History N/A 0 EKG N/A 0 Age N/A 0 Risk Factors N/A 0 Troponin N/A 0 Total 0 ZHANE BEAL MD Apr 28, 2025 11:59
[2025-04-28 12:00] VITALS: PULSE 73; RESP 18; TEMP 98.3; O2SAT 96
--- NOTE | 2025-04-28 12:21 | DVH ---
AP portable chest CLINICAL INDICATION: sob FINDINGS: Heart size is normal. Is slightly tortuous No infiltrates or effusions. No bony thoracic ab normalities. IMPRESSION: 1. No acute cardiopulmonary pathology
[2025-04-28 12:33] LABS: Chloride 103 mmol/L (98-107); Potassium 3.9 mmol/L (3.5-5.1); Sodium 138 mmol/L (136-145)
[2025-04-28 12:34] LABS: Anion Gap 9 (5-15); Carbon Dioxide 26 mmol/L (20-31)
[2025-04-28 12:35] LABS: Calcium 9.7 mg/dL (8.7-10.4)
[2025-04-28 12:39] LABS: Glucose 98 mg/dL (74-106)
[2025-04-28 12:40] LABS: BUN/Creatinine Ratio 9.3 (10.0-20.0)
[2025-04-28 12:41] LABS: Urine Protein, UAD Negative (Negative)
[2025-04-28 12:42] LABS: Blood Urea Nitrogen 9 mg/dL (9-23)
[2025-04-28 13:10] LABS: Hematocrit 50.0 % (36.0-46.0); Hemoglobin 17.1 g/dL (12.2-16.2); Mean Corpuscular Hemoglobin 32.0 pg (28.0-32.0); Mean Corpuscular Volume 93.7 fL (80.0-100.0); Nucleated Red Blood Cells % 0.0 %
[2025-04-28] MEDS ORDERED: NITR-87 PO (14:51)
[2025-04-28 18:00] VITALS: BP 150/66; RESP 13; O2SAT 96
[2025-04-28 18:19] VITALS: PULSE 61
== END 2025-04-28 19:20 | disposition home or self-care (01) ==
LOC: ER 11:31 → EDBD 11:31 → EDSEX 11:31 → ER 19:20
DX: N39.0 Urinary tract infection, site not specified (principal); I10 Essential (primary) hypertension; F03.90 Unspecified dementia, unspecified severity, without behavioral disturbance, psychotic disturbance, mood disturbance, and anxiety; Z79.899 Other long term (current) drug therapy; Z88.0 Allergy status to penicillin
CPT/HCPCS: 36415; 51702; 71045; 80048; 81001; 84484; 96365; 99285; J0696

== ENCOUNTER 2025-05-25 16:08 | Emergency (ER) | payer OTHER ==
[~2025-05-25] VITALS: Ht 154.9 cm; Wt 77.1 kg
[~2025-05-25 16:08] MED LIST changes: +NITR-87 PO
[2025-05-25 16:15] VITALS: BP 150/74; TEMP 97.5
[2025-05-25] MEDS ORDERED: SODIUM CHLORIDE 0.9% 1,000 ML IV ONE (16:15)
--- NOTE | 2025-05-25 16:19 | ED.PDOC ---
History of Present Illness HPI Comments This is a 69 year-old female who presents to the ED via EMS with a chief complaint of removed urinary catheter minutes ago. Patient states her urinary catheter has been in place for X1 month. Patient states her urinary catheter was removed, exact cause unknown. 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 Patient has no further complaints at this time and otherwise denies further associated symptoms of fever, chills, N/V/D, dysuria, or hematuria. Chief Complaint: Tube Replacement Time Seen by MD: 16:10 Primary Care Provider: KENNY Reviewed Notes: Medications, Allergies Allergies: Coded Allergies: Cephalexin (Verified Allergy, Unknown, 05/25/25) Lactose (Verified Allergy, Unknown, 05/25/25) Penicillins (Verified Allergy, Unknown, 02/04/24) Sulfa Antibiotics (Verified Allergy, Unknown, 05/25/25) Home Meds Active Scripts Nitrofurantoin Monohydrate Mac (Macrobid) 100 Mg Cap, 100 MG PO BID for 10 Days, #20 CAP Prov:ZHANE BEAL MD 05/25/25 Nitrofurantoin Monohydrate Mac (Macrobid) 100 Mg Cap, 100 MG PO BID for 10 Days, #20 CAP Prov:ZHANE BEAL MD 04/28/25 Ciprofloxacin Hcl (Ciprofloxacin Hcl) 500 Mg Tab, 1 TAB PO BID for 7 Days, #14 TAB Prov:ALFONSO PAT MD 07/23/24 Ciprofloxacin Hcl (Cipro) 500 Mg Tab, 500 MG PO BID for 7 Days, #14 CAP Prov:SIENNA SHIPMAN DO 05/29/24 Ciprofloxacin Hcl (Ciprofloxacin Hcl) 500 Mg Tab, 1 TAB PO BID for 7 Days, #14 TAB Prov:PAT MAY 04/13/24 Ciprofloxacin Hcl (Cipro) 500 Mg Tab, 1 TAB PO BID, #20 TAB Prov:ANDRE FAULKNER MD 03/20/24 Ciprofloxacin Hcl (Cipro) 500 Mg Tab, 1 TAB PO BID, #14 TAB Prov:ANDRE FAULKNER MD 02/07/24 Sulfamethoxazole W/Trimethopri (Bactrim Ds Tablet) 1 Tab Tb, 1 TAB PO BID for 7 Days, #14 TAB Prov:ZHANE BEAL MD 02/04/24 Reported Medications Citalopram Hydrobromide (Citalopram Hydrobromide) 10 Mg Tab, MG PO DAILY for 30 Days, MG 03/16/24 Amlodipine Besylate (Amlodipine Besylate) 5 Mg Tab, 5 MG PO DAILY for 30 Days, MG 02/05/24 Celecoxib (Celebrex) 100 Mg Cap, 100 MG PO DAILY for 30 Days, MG 02/05/24 Hydrocodone-Acetaminophen (Hydrocodone Bitartrate/AC 5-325 mg) 1 Tab Tab, 1 TAB PO Q6HP, TAB 02/05/24 Information Source: Patient Mode of Arrival: EMS Severity: Moderate Timing: Minutes Prehospital treatment: Pain Meds (Tylenol Drip ) Past Medical History PAST MEDICAL HISTORY: Dementia, HTN, UTI'S Surgical History: Denies all surgeries DIRECTOR CPG History: Denies all DIRECTOR CPG Hx Family History Family History: Unknown Social History Smoker: Non-Smoker Alcohol: Denies ETOH Use Drugs: Denies Drug Use Lives In: Home Constitutional: denies: chills, diaphoresis, fatigue, fever, malaise, sweats, weakness, others EENTM: denies: blurred vision, double vision, ear bleeding, ear discharge, ear drainage, ear pain, ear ringing, eye pain, eye redness, hearing loss, mouth pain, mouth swelling, nasal discharge, nose bleeding, nose congestion, nose pain, photophobia, tearing, throat pain, throat swelling, voice changes, others Respiratory: denies: cough, hemoptysis, orthopnea, SOB at rest, shortness of breath, SOB with excertion, stridor, wheezing, others Cardiovascular: denies: chest pain, dizzy spells, diaphoresis, Dyspnea on exertion, edema, irregular heart beat, left arm pain, lightheadedness, palpitations, PND, syncope, others Gastrointestinal: denies: abdomen distended, abdominal pain, blood streaked bowels, constipated, diarrhea, dysphagia, difficulty swallowing, hematemesis, melena, nausea, poor appetite, poor fluid intake, rectal bleeding, rectal pain, vomiting, others Genitourinary: denies: abnormal vagina bleeding, burning, dyspareunia, dysuria, flank pain, frequency, hematuria, incontinence, pain, , vagina discharge, urgency, others Neurological: denies: dizziness, fainting, headache, left sided numbness, left sided weakness, numbness, paresthesia, pre-existing deficit, right sided numbness, right sided weakness, seizure, speech problems, tingling, tremors, weakness, others Musculoskeletal: denies: back pain, gout, joint pain, joint swelling, muscle pain, muscle stiffness, neck pain, others Integumetry: denies: bruises, change in color, change in hair/nails, dryness, laceration, lesions, lumps, rash, wounds, others Hematologic/Lymphatic: denies: anemia, blood clots, easy bleeding, easy bruising, swollen glands, others Endocrine: denies: excessive hunger, excessive sweating, excessive thirst, excessive urination, flushing, intolerance to cold, intolerance to heat, unexplained weight gain, unexplained weight loss, others Psychiatric: denies: anxiety, bipolar disorder, depression, hopeless, panic disorder, schizophrenia, sleepless, suicidal, others All Other Systems: Reviewed and Negative Physical Exam General Appearance: Moderate Distress HEENT: Normal ENT Inspection, Pharynx Normal, TMs Normal Neck: Full Range of Motion, Non-Tender, Normal, Normal Inspection Respiratory: Chest Non-Tender, Lungs Clear, No Accessory Muscle Use, No Respiratory Distress, Normal Breath Sounds Cardiovascular: No Edema, No JVD, No Murmur, No Gallop, Normal Peripheral Pulses, Regular Rate/Rhythm Breast Exam: Deferred Gastrointestinal: No Organomegaly, Non Tender, No Pulsatile Mass, Normal Bowel Sounds, Soft Genitalia: Deferred Pelvic: Deferred Rectal: Deferred Extremities: No calf tenderness, Normal capillary refill, Non-tender, No pedal edema Musculoskeletal : Apperance: Normal Neurologic: Alert Cerebellar Function: NOT DONE Reflexes: NOT DONE Skin: Dry, Normal Color, Warm Peripheral Pulses: 3+ Radial (R), 3+ Radial (L) Lymphatic: No Adenopathy Was a procedure done? Was a procedure done?: No Differential Dx Considerations may include: Urinary Catheter Replacement X-Ray, Labs, Meds, VS Vital Signs Date Time Temp Pulse Resp B/P (MAP) Pulse Ox O2 Delivery O2 Flow Rate FiO2 05/25/25 16:41 74 16 95 Room Air* 0 21 05/25/25 16:15 97.5 82 14 150/74 95 97.5 Lab Test 05/25/25 16:40 Range/Units Urine Color Light-yellow Yellow Urine Clarity Turbid H Clear Urine pH 6.0 5.0-9.0 Urine Specific [place] 1.022 1.001-1.035 Urine Protein Negative Negative Urine Ketones Negative Negative Urine Blood Trace H Negative /uL Urine Nitrite 2+ H Negative Urine Bilirubin Negative Negative Urine Urobilinogen Normal Negative mg/dL Urine Leukocyte Esterase 3+ Negative /uL Urine RBC 11 0 - 4 /hpf Urine Microscopic WBC 84 H 0-5 /HPF Urine Squamous Epithelial Cells Few <5 /hpf Urine Bacteria Many H None Seen /hpf Urine Mucus Few None Seen Urine Glucose Normal Normal mg/dL Patient alert. Saturation pristine on room air. Heart rate within normal limits. Blood pressure slightly elevated. Had a Hale catheter in placed that was removed. UA shows UTI. Was given prescription of Macrobid antibiotic. Explained to the patient. Was told to follow up with her primary care physician. Was told to come back if there is any problem. Time of 1ST Reevaluation: 17:22 Reevaluation 1ST: Unchanged Patient Education/Counseling: Diagnosis, Treatment Family Education/Counseling: No Family Present SEPSIS Sepsis Screen Physician Orders Insert Hale Catheter QSHIFT (05/25/25 16:15) Urine Bacterial Culture (05/25/25 16:15) Chest Portable (05/25/25 16:15) Vital Signs Date Time Temp Pulse Resp B/P (MAP) Pulse Ox O2 Delivery O2 Flow Rate FiO2 05/25/25 16:41 74 16 95 Room Air* 0 21 05/25/25 16:15 97.5 82 14 150/74 95 97.5 Departure 1 Departure Time of Disposition: 16:41 Impression: Primary Impression: Encounter for Hale catheter replacement Additional Impression: UTI (urinary tract infection) Qualified Codes: N30.00 - Acute cystitis without hematuria Disposition: 01 HOME / SELF CARE / HOMELESS Condition: Good e-Prescriptions Ciprofloxacin Hcl (Cipro) 500 Mg Tab 1 TAB PO BID for 10 Days, #20 TAB Prov: ZHANE BEAL MD 05/25/25 Discharged With: Self Critical Care Note Critical Care Time?: No Stability Stability form required: No Heart Score Heart Score: Heart Score Response (Comments) Value History N/A 0 EKG N/A 0 Age N/A 0 Risk Factors N/A 0 Troponin N/A 0 Total 0 I personally scribed for ZHANE BEAL MD ([email or web address]) on 05/25/25 at 16:19. Electronically submitted by Fiona Herndon ([email or web address]). I personally scribed for ZHANE BEAL MD ([email or web address]) on 05/25/25 at 16:35. Electronically submitted by Fiona Herndon ([email or web address]). ZHANE BEAL MD May 25, 2025 16:19
[2025-05-25 16:41] VITALS: PULSE 74; RESP 16; O2SAT 95
[2025-05-25 16:51] LABS: Urine Protein, UAD Negative (Negative)
[2025-05-25] MEDS ORDERED: SULFAMETH-TRIMETH 80/16MG-ML 10 ML in D5W 5% 250 ML IV ONE (17:00)
[2025-05-25] MEDS ORDERED: CIPR-173 PO (17:07)
[2025-05-25] MEDS: CIPROFLOXACIN HCL 500 MG TAB PO ONE (17:10)
--- NOTE | 2025-05-25 17:35 | DVH ---
EXAM: XY CHEST PORTABLE HISTORY: sob TECHNIQUE: 1 view of the chest COMPARISON: XY CHEST PORTABLE on DOS: 04/28/25 FINDINGS/IMPRESSION: LUNGS: No pleural effusion, consolidation, or pneumothorax. MEDIASTINUM: Unremarkable. BONES: No acute osseous abnormality. OTHER: None.
[2025-05-26] MEDS ORDERED: BACDST PO (16:28)
== END 2025-05-25 16:54 | disposition home or self-care (01) ==
LOC: EDBD 16:08 → ER 16:10
DX: N39.0 Urinary tract infection, site not specified (principal); Z46.82 Encounter for fitting and adjustment of non-vascular catheter; F03.90 Unspecified dementia, unspecified severity, without behavioral disturbance, psychotic disturbance, mood disturbance, and anxiety; I10 Essential (primary) hypertension; Z79.899 Other long term (current) drug therapy; Z87.440 Personal history of urinary (tract) infections; Z88.0 Allergy status to penicillin; Z88.1 Allergy status to other antibiotic agents; Z88.2 Allergy status to sulfonamides; Z79.1 Long term (current) use of non-steroidal anti-inflammatories (NSAID)
CPT/HCPCS: 51702; 71045; 81001; 87086; 87088; 87186; 99284; A4315; J3490; J7060

== ENCOUNTER 2025-05-26 13:13 | Emergency (ER) | payer OTHER ==
[~2025-05-26] VITALS: Ht 154.9 cm; Wt 110.0 kg
[2025-05-26 13:40] VITALS: PULSE 69; RESP 16; O2SAT 97
--- NOTE | 2025-05-26 14:54 | ED.PDOC ---
History of Present Illness HPI Comments 69-year-old white female presented to the emergency department because of Hale catheter leaking she was here yesterday and had a Hale catheter which is smaller than the one she used the has at [place] Chief Complaint: Tube Replacement Time Seen by MD: 13:16 Primary Care Provider: KENNY Reviewed Notes: Nurses Notes, Editor Managing Newspaper Notes, Medications, Allergies Allergies: Coded Allergies: Cephalexin (Verified Allergy, Unknown, 05/25/25) Lactose (Verified Allergy, Unknown, 05/25/25) Penicillins (Verified Allergy, Unknown, 02/04/24) Sulfa Antibiotics (Verified Allergy, Unknown, 05/25/25) Home Meds Active Scripts Ciprofloxacin Hcl (Cipro) 500 Mg Tab, 1 TAB PO BID for 10 Days, #20 TAB Prov:ZHANE BEAL MD 05/25/25 Nitrofurantoin Monohydrate Mac (Macrobid) 100 Mg Cap, 100 MG PO BID for 10 Days, #20 CAP Prov:ZHANE BEAL MD 04/28/25 Ciprofloxacin Hcl (Ciprofloxacin Hcl) 500 Mg Tab, 1 TAB PO BID for 7 Days, #14 TAB Prov:ALFONSO PAT MD 07/23/24 Ciprofloxacin Hcl (Cipro) 500 Mg Tab, 500 MG PO BID for 7 Days, #14 CAP Prov:SIENNA SHIPMAN DO 05/29/24 Ciprofloxacin Hcl (Ciprofloxacin Hcl) 500 Mg Tab, 1 TAB PO BID for 7 Days, #14 TAB Prov:PAT MAY 04/13/24 Ciprofloxacin Hcl (Cipro) 500 Mg Tab, 1 TAB PO BID, #20 TAB Prov:ANDRE FAULKNER MD 03/20/24 Ciprofloxacin Hcl (Cipro) 500 Mg Tab, 1 TAB PO BID, #14 TAB Prov:ANDRE FAULKNER MD 02/07/24 Sulfamethoxazole W/Trimethopri (Bactrim Ds Tablet) 1 Tab Tb, 1 TAB PO BID for 7 Days, #14 TAB Prov:ZHANE BEAL MD 02/04/24 Reported Medications Citalopram Hydrobromide (Citalopram Hydrobromide) 10 Mg Tab, MG PO DAILY for 30 Days, MG 03/16/24 Amlodipine Besylate (Amlodipine Besylate) 5 Mg Tab, 5 MG PO DAILY for 30 Days, MG 02/05/24 Celecoxib (Celebrex) 100 Mg Cap, 100 MG PO DAILY for 30 Days, MG 02/05/24 Hydrocodone-Acetaminophen (Hydrocodone Bitartrate/AC 5-325 mg) 1 Tab Tab, 1 TAB PO Q6HP, TAB 02/05/24 Information Source: Patient, Emergency Med Personnel Mode of Arrival: EMS Severity: Mild Timing: Hours Duration: Since onset Medication Refill: For: Other (Patient need Hale catheter replaced) Past Medical History PAST MEDICAL HISTORY: Dementia, Depression, HTN, UTI'S Surgical History: Denies all surgeries 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: 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 all TOOL GRINDING MACHINE 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 Hx Family History Family History: Unknown Social History Smoker: Non-Smoker Alcohol: Denies ETOH Use Drugs: Denies Drug Use Lives In: Home Constitutional: reports: weakness; denies: chills, diaphoresis, fatigue, fever, malaise, sweats, others EENTM: denies: blurred vision, double vision, ear bleeding, ear discharge, ear drainage, ear pain, ear ringing, eye pain, eye redness, hearing loss, mouth pain, mouth swelling, nasal discharge, nose bleeding, nose congestion, nose pain, photophobia, tearing, throat pain, throat swelling, voice changes, others Respiratory: denies: cough, hemoptysis, orthopnea, SOB at rest, shortness of breath, SOB with excertion, stridor, wheezing, others Cardiovascular: denies: chest pain, dizzy spells, diaphoresis, Dyspnea on exertion, edema, irregular heart beat, left arm pain, lightheadedness, pal pitations, PND, syncope, others Gastrointestinal: denies: abdomen distended, abdominal pain, blood streaked bowels, constipated, diarrhea, dysphagia, difficulty swallowing, hematemesis, melena, nausea, poor appetite, poor fluid intake, rectal bleeding, rectal pain, vomiting, others Genitourinary: reports: incontinence; denies: abnormal vagina bleeding, burning, dyspareunia, dysuria, flank pain, frequency, hematuria, pain, , vagina discharge, urgency, others Neurological: denies: dizziness, fainting, headache, left sided numbness, left sided weakness, numbness, paresthesia, pre-existing deficit, right sided numbness, right sided weakness, seizure, speech problems, tingling, tremors, weakness, others Musculoskeletal: denies: back pain, gout, joint pain, joint swelling, muscle pain, muscle stiffness, neck pain, others Integumetry: denies: bruises, change in color, change in hair/nails, dryness, laceration, lesions, lumps, rash, wounds, others Allergic/Immunocompromised: denies: Difficulty Healing, Frequent Infections, Hives, Itching, others Hematologic/Lymphatic: denies: anemia, blood clots, easy bleeding, easy bruising, swollen glands, others Endocrine: denies: excessive hunger, excessive sweating, excessive thirst, excessive urination, flushing, intolerance to cold, intolerance to heat, unexplained weight gain, unexplained weight loss, others Psychiatric: reports: depression Unable to Obtain due to: Dementia All Other Systems: Reviewed and Negative Physical Exam General Appearance: No Apparent Distress, Obese HEENT: Normal ENT Inspection, PERRL/EOMI Neck: Full Range of Motion, Non-Tender, Normal, Normal Inspection Respiratory: Chest Non-Tender, Lungs Clear, No Accessory Muscle Use, No Respiratory Distress, Normal Breath Sounds Cardiovascular: No Edema, No JVD, No Murmur, No Gallop, Normal Peripheral Pulses, Regular Rate/Rhythm Breast Exam: Deferred Gastrointestinal: No Organomegaly, Non Tender, No Pulsatile Mass, Normal Bowel Sounds, Soft Genitalia: Deferred Pelvic: Deferred Rectal: Deferred Extremities: No calf tenderness, Normal capillary refill, Normal inspection, Non-tender, No pedal edema, Other (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 Was a procedure done?: No Differential Dx Considerations may include: Leaking catheter patient here for change of catheter X-Ray, Labs, Meds, VS Vital Signs Date Time Temp Pulse Resp B/P (MAP) Pulse Ox O2 Delivery O2 Flow Rate FiO2 05/26/25 13:40 69 16 97 Room Air* 0 21 05/26/25 13:40 69 19 132/42 (72) 97 05/26/25 13:18 98.0 68 16 148/80 99 98.0 Lab Test 05/26/25 16:06 Range/Units Urine Color Colorless Yellow Urine Clarity Turbid H Clear Urine pH 6.0 5.0-9.0 Urine Specific [place] 1.026 1.001-1.035 Urine Protein 2+ H Negative Urine Ketones Negative Negative Urine Blood 2+ H Negative /uL Urine Nitrite Negative Negative Urine Bilirubin Negative Negative Urine Urobilinogen Normal Negative mg/dL Urine Leukocyte Esterase 3+ Negative /uL Urine RBC 223 0 - 4 /hpf Urine Microscopic WBC 85 H 0-5 /HPF Urine Squamous Epithelial Cells Few <5 /hpf Urine Calcium Oxalate Crystals Mod None Seen Urine Bacteria Few H None Seen /hpf Urine Mucus Few None Seen Urine Glucose Normal Normal mg/dL X-Ray, Labs, Meds, VS Comment Patient came in to replace her Hale catheter Urine shows 2+ protein 2+ blood 3+ leukocyte esterase and bacteria take your patient has been hydrated She will be discharged with medication catheter has been replaced Time of 1ST Reevaluation: 14:53 Reevaluation 1ST: Unchanged Time of 2ND Reevaluation: 16:26 Reevaluation 2ND: Improved Consultation: PCP Patient Education/Counseling: Diagnosis, Treatment, Prognosis, Need For Follow Up Family Education/Counseling: Diagnosis, Treatment, Prognosis, Need For Follow Up, No Family Present SEPSIS Sepsis Screen Date sepsis recognized/suspect: May 26, 2025 Time Sepsis recognized/suspect: 1321 Recent Procedure: No On Antibiotic Therapy: No Respiratory Rate >20: No Heart Rate >90: No Temp<36 C (96.8 F) or >38.3 C: No SBP <90 or MAP <65 mmHG: No New Acute Mental Status Change: No Is the patient on CPAP, BIPAP,: No Physician Orders Urine Dip (05/26/25 ) Vital Signs Date Time Temp Pulse Resp B/P (MAP) Pulse Ox O2 Delivery O2 Flow Rate FiO2 05/26/25 13:40 69 16 97 Room Air* 0 21 05/26/25 13:40 69 19 132/42 (72) 97 05/26/25 13:18 98.0 68 16 148/80 99 98.0 Departure 1 Departure Time of Disposition: 15:29 Impression: Primary Impression: Posterior cortical atrophy Additional Impressions: Encounter for Hale catheter replacement UTI (urinary tract infection) Qualified Codes: T83.511D - Infection and inflammatory reaction due to in dwelling urethral catheter, subsequent encounter; N39.0 - Urinary tract infection, site not specified Disposition: HOME / SELF CARE / HOMELESS Condition: Fair e-Prescriptions Sulfamethoxazole W/Trimethopri (Bactrim Ds Tablet) 1 Tab Tb 1 TAB PO BID PRN for 10 Days, #20 TAB Prov: ALFONSO PAT MD 05/26/25 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
[2025-05-26 16:20] LABS: Urine Protein, UAD 2+ (Negative)
[2025-05-26] MEDS ORDERED: BACDST PO (16:28)
[2025-05-26 19:32] VITALS: TEMP 98.2
[2025-05-26 19:33] VITALS: PULSE 68; RESP 20; O2SAT 99
[2025-05-26 21:31] VITALS: BP 140/64; PULSE 69; RESP 18; O2SAT 100
== END 2025-05-26 21:35 | disposition home or self-care (01) ==
LOC: EDBD 13:13 → ER 13:16
DX: G31.9 Degenerative disease of nervous system, unspecified (principal); N39.0 Urinary tract infection, site not specified; Z46.6 Encounter for fitting and adjustment of urinary device; Z79.899 Other long term (current) drug therapy; Z88.1 Allergy status to other antibiotic agents; Z88.2 Allergy status to sulfonamides; Z88.0 Allergy status to penicillin
CPT/HCPCS: 51702; 81001; 99285; A4315

== ENCOUNTER 2025-05-31 09:11 | Emergency (ER) | payer OTHER ==
[~2025-05-31] VITALS: Ht 152.4 cm; Wt 81.8 kg
--- NOTE | 2025-05-31 10:38 | DVH ---
Date: 05/31/2025 10:19 AM Examination: XY KUB ABDOMEN SINGLE VIEW History: constipation Comparison: None TECHNIQUE: Frontal views of the abdomen was obtained. FINDINGS: Bowel gas pattern is unremarkable. The lung bases are unremarkable. No acute osseous abnormality identified. IMPRESSION: Nonobstructive bowel gas pattern. Large stool burden
[2025-05-31] MEDS: DOCUSATE SOD 100 MG CAP PO ONE (11:11)
--- NOTE | 2025-05-31 11:42 | ED.PDOC ---
GI ASSESSMENT HPI Comments 69 year-old female who presents to the ED via EMS with a chief complaint of constipation x 2 days. EMS reports per staff, limited information provided. Patient has been seen at his hospital numerous times due to frequent removal of urinary catheter. 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 Patient denies further associated symptoms of fever, chills, N/V/D, dysuria, or hematuria. Time Seen by MD: 09:17 Primary Care Provider: KENNY Reviewed Notes: Nurses Notes, Hand Painter Notes, Medications, Allergies Allergies: Coded Allergies: Cephalexin (Verified Allergy, Unknown, 05/25/25) Lactose (Verified Allergy, Unknown, 05/25/25) Penicillins (Verified Allergy, Unknown, 02/04/24) Sulfa Antibiotics (Verified Allergy, Unknown, 05/25/25) Home Meds Active Scripts Sulfamethoxazole W/Trimethopri (Bactrim Ds Tablet) 1 Tab Tb, 1 TAB PO BID PRN for 10 Days, #20 TAB Prov:ALFONSO PAT MD 05/26/25 Ciprofloxacin Hcl (Cipro) 500 Mg Tab, 1 TAB PO BID for 10 Days, #20 TAB Prov:ZHANE BEAL MD 05/25/25 Nitrofurantoin Monohydrate Mac (Macrobid) 100 Mg Cap, 100 MG PO BID for 10 Days, #20 CAP Prov:ZHANE BEAL MD 04/28/25 Ciprofloxacin Hcl (Ciprofloxacin Hcl) 500 Mg Tab, 1 TAB PO BID for 7 Days, #14 TAB Prov:ALFONSO PAT MD 07/23/24 Ciprofloxacin Hcl (Cipro) 500 Mg Tab, 500 MG PO BID for 7 Days, #14 CAP Prov:SIENNA SHIPMAN DO 05/29/24 Ciprofloxacin Hcl (Ciprofloxacin Hcl) 500 Mg Tab, 1 TAB PO BID for 7 Days, #14 TAB Prov:PAT MAY 04/13/24 Ciprofloxacin Hcl (Cipro) 500 Mg Tab, 1 TAB PO BID, #20 TAB Prov:ANDRE FAULKNER MD 03/20/24 Ciprofloxacin Hcl (Cipro) 500 Mg Tab, 1 TAB PO BID, #14 TAB Prov:ANDRE FAULKNER MD 02/07/24 Sulfamethoxazole W/Trimethopri (Bactrim Ds Tablet) 1 Tab Tb, 1 TAB PO BID for 7 Days, #14 TAB Prov:ZHANE BEAL MD 02/04/24 Reported Medications Citalopram Hydrobromide (Citalopram Hydrobromide) 10 Mg Tab, MG PO DAILY for 30 Days, MG 03/16/24 Amlodipine Besylate (Amlodipine Besylate) 5 Mg Tab, 5 MG PO DAILY for 30 Days, MG 02/05/24 Celecoxib (Celebrex) 100 Mg Cap, 100 MG PO DAILY for 30 Days, MG 02/05/24 Hydrocodone-Acetaminophen (Hydrocodone Bitartrate/AC 5-325 mg) 1 Tab Tab, 1 TAB PO Q6HP, TAB 02/05/24 Information Source: Patient, Emergency Med Personnel Mode of Arrival: EMS Timing: Days (2) Duration: Since onset Quality: None Vomitus: None Stool: Empty Severity: Mild Recent: None Recent Hx of: None Pain Location: None Associated sign and symptoms: Constipation Past Medical History PAST MEDICAL HISTORY: Dementia, Depression, HTN, UTI'S Surgical History: Denies all surgeries EPIDEMIOLOGY INTERN History: Denies all EPIDEMIOLOGY INTERN Hx Family History Family History: Unknown Social History Smoker: Non-Smoker Alcohol: Denies ETOH Use Drugs: Denies Drug Use Lives In: Home Constitutional: denies: chills, diaphoresis, fatigue, fever, malaise, sweats, weakness, others EENTM: denies: blurred vision, double vision, ear bleeding, ear discharge, ear drainage, ear pain, ear ringing, eye pain, eye redness, hearing loss, mouth pain, mouth swelling, nasal discharge, nose bleeding, nose congestion, nose pain, photophobia, tearing, throat pain, throat swelling, voice changes, others Respiratory: denies: cough, hemoptysis, orthopnea, SOB at rest, shortness of breath, SOB with excertion, stridor, wheezing, others Cardiovascular: denies: chest pain, dizzy spells, diaphoresis, Dyspnea on exertion, edema, irregular heart beat, left arm pain, lightheadedness, palpi tations, PND, syncope, others Gastrointestinal: reports: constipated; denies: abdomen distended, abdominal pain, blood streaked bowels, diarrhea, dysphagia, difficulty swallowing, hematemesis, melena, nausea, poor appetite, poor fluid intake, rectal bleeding, rectal pain, vomiting, others Genitourinary: denies: abnormal vagina bleeding, burning, dyspareunia, dysuria, flank pain, frequency, hematuria, incontinence, pain, , vagina discha rge, urgency, others Neurological: denies: dizziness, fainting, headache, left sided numbness, left sided weakness, numbness, paresthesia, pre-existing deficit, right sided numbness, right sided weakness, seizure, speech problems, tingling, tremors, weakness, others Musculoskeletal: denies: back pain, gout, joint pain, joint swelling, muscle pain, muscle stiffness, neck pain, others Integumetry: denies: bruises, change in color, change in hair/nails, dryness, laceration, lesions, lumps, rash, wounds, others Allergic/Immunocompromised: denies: Difficulty Healing, Frequent Infections, Hives, Itching, others Hematologic/Lymphatic: denies: anemia, blood clots, easy bleeding, easy bruising, swollen glands, others Endocrine: denies: excessive hunger, excessive sweating, excessive thirst, excessive urination, flushing, intolerance to cold, intolerance to heat, unexplained weight gain, unexplained weight loss, others Psychiatric: denies: anxiety, bipolar disorder, depression, hopeless, panic disorder, schizophrenia, sleepless, suicidal, others All Other Systems: Reviewed and Negative Physical Exam General Appearance: Moderate Distress HEENT: Normal ENT Inspection, Pharynx Normal, TMs Normal Neck: Full Range of Motion, Non-Tender, Normal, Normal Inspection Respiratory: Chest Non-Tender, Lungs Clear, No Accessory Muscle Use, No Respiratory Distress, Normal Breath Sounds Cardiovascular: No Edema, No JVD, No Murmur, No Gallop, Normal Peripheral Pulses, Regular Rate/Rhythm Breast Exam: Deferred Gastrointestinal: No Organomegaly, Non Tender, No Pulsatile Mass, Normal Bowel Sounds, Soft Genitalia: Deferred Pelvic: Deferred Rectal: Deferred Extremities: No calf tenderness, No pedal edema Musculoskeletal : Apperance: Normal Neurologic: Alert Cerebellar Function: NOT DONE Reflexes: NOT DONE Skin: Normal Color Peripheral Pulses: 3+ Radial (R), 3+ Radial (L) Lymphatic: No Adenopathy Was a procedure done? Was a procedure done?: No GI differential Dx Differential Diagnosis: Bowel Obstruction, Constipation, Dehydration X-Ray, Labs, Meds, VS Vital Signs Date Time Temp Pulse Resp B/P (MAP) Pulse Ox O2 Delivery O2 Flow Rate FiO2 05/31/25 17:36 16 96 Room Air* 0 21 05/31/25 16:11 Room Air* 0 21 05/31/25 15:00 70 12 148/64 (92) 97 05/31/25 13:31 98.9 72 14 131/57 (81) 97 98.9 05/31/25 09:21 98.5 77 12 160/70 98 98.5 Lab Test 05/31/25 16:05 05/31/25 14:01 Range/Units White Blood Count 9.3 4.4-10.8 10^3/uL Red Blood Count 4.80 4.0-5.20 10^6/uL Hemoglobin 15.0 12.2-16.2 g/dL Hematocrit 45.5 36.0-46.0 % Mean Corpuscular Volume 94.8 80.0-100.0 fL Mean Corpuscular Hemoglobin 31.3 28.0-32.0 pg Mean Corpuscular Hemoglobin Concent 33.0 32.0-36.0 g/dL Red Cell Distribution Width 13.9 11.8-14.3 % Platelet Count 241 140-450 10^3/uL Mean Platelet Volume 7.9 6.9-10.8 fL Neutrophils (%) (Auto) 75.0 37.0-80.0 % Lymphocytes (%) (Auto) 16.0 10.0-50.0 % Monocytes (%) (Auto) 5.5 0.0-12.0 % Eosinophils (%) (Auto) 2.9 0.0-7.0 % Basophils (%) (Auto) 0.6 0.0-2.0 % Neutrophils # (Auto) 7.0 1.6-8.6 10 ^3/uL Lymphocytes # (Auto) 1.5 0.4-5.4 10 ^3/uL Monocytes # (Auto) 0.5 0-1.3 10 ^3/uL Eosinophils # (Auto) 0.3 0-0.8 10 ^3/uL Basophils # (Auto) 0.1 0-0.2 10 ^3/uL Nucleated Red Blood Cells 0.1 % Sodium Level 136 136-145 mmol/L Potassium Level 5.4 H 3.5-5.1 mmol/L Chloride Level 102 98-107 mmol/L Carbon Dioxide Level 23 20-31 mmol/L Anion Gap 11 5-15 Blood Urea Nitrogen 14 9-23 mg/dL Creatinine 1.04 H 0.550-1.02 mg/dL Glomerular Filtration Rate Calc 59 >90 mL/min BUN/Creatinine Ratio 13.5 10.0-20.0 Serum Glucose 84 74-106 mg/dL Calcium Level 9.4 8.7-10.4 mg/dL Urine Color Light-yellow Yellow Urine Clarity Clear Clear Urine pH 5.5 5.0-9.0 Urine Specific [facility] 1.014 1.001-1.035 Urine Protein Trace H Negative Urine Ketones Negative Negative Urine Blood 3+ H Negative /uL Urine Nitrite Negative Negative Urine Bilirubin Negative Negative Urine Urobilinogen Normal Negative mg/dL Urine Leukocyte Esterase 1+ Negative /uL Urine RBC 180 0 - 4 /hpf Urine Microscopic WBC 12 H 0-5 /HPF Urine Squamous Epithelial Cells Few <5 /hpf Urine Calcium Oxalate Crystals Few None Seen Urine Bacteria Few H None Seen /hpf Urine Mucus Few None Seen Urine Yeast (Budding) Occasional None Seen /hpf Urine Glucose Normal Normal mg/dL Current Medications Medications (Trade) Dose Ordered Sig/Penelope Route Start Time Stop Time Status Last Admin Docusate Sodium (Colace Capsule) 100 mg ONCE ONCE PO 05/31/25 11:00 05/31/25 11:01 DC 05/31/25 11:11 Levofloxacin (Levaquin Tablet) 500 mg ONCE ONCE PO 05/31/25 15:15 05/31/25 15:16 DC 05/31/25 15:55 Albuterol (Ventolin Medneb) 20 mg ONCE ONCE NEB 05/31/25 17:30 05/31/25 17:31 DC 05/31/25 17:35 [place] [id number] Ph: [phone] DIAGNOSTIC IMAGING Diagnostic Imaging Report : [id number] Signed PATIENT: CHRIS PAYTON ACCT: [id number] UNIT: [id number] : 1955 LOC: ER ROOM / BED: / AGE / SEX: 69 / F ADM STATUS: REG ER SERVICE 8 ORDERING PHYSICIAN: ZHANE BEAL MD PROCEDURE(s): KUB - KUB ABDOMEN SINGLE VIEW REASON: constipation ORDER NUMBER(s): [id number], ACCESSION NUMBER(s): [id number] Date: 05/31/2025 10:19 AM Examination: XY KUB ABDOMEN SINGLE VIEW History: constipation Comparison: None TECHNIQUE: Frontal views of the abdomen was obtained. FINDINGS: Bowel gas pattern is unremarkable. The lung bases are unremarkable. No acute osseous abnormality identified. IMPRESSION: Nonobstructive bowel gas pattern. Large stool burden ATED BY: EULA TINOCO MD DICTATED DATE/TIME: 05/31/251034 SIGNED BY: EULA TINOCO MD SIGNED DATE/TIME: 05/31/251034 CC: Patient alert. Blood pressure slightly elevated. Complaining of not having a bowel movement. Vitals stable. Comes here regularly. Abdomen is soft nontender. Reviewed her previous visit. No EKG changes. Potassium slightly elevated. Hyperkalemia treatment. Family insists on transferring to [facility]. Was told to continue taking her urinary tract infection antibiotics. Explained to the patient. Was told to follow up with her primary care physician. Was told to come back if there is any problem. Time of 1ST Reevaluation: 09:22 Reevaluation 1ST: Improved Patient Education/Counseling: Diagnosis, Treatment, Prognosis Family Education/Counseling: No Family Present SEPSIS Sepsis Screen Physician Orders Kub Abdomen Single View (05/31/25 09:19) Imaging Transfer Request (05/31/25 16:29) Potassium (05/31/25 21:18) Calcium Gluc 1,000mg/50ml-Ns (05/31/25 17:30) Potassium (05/31/25 17:37) Vital Signs Date Time Temp Pulse Resp B/P (MAP) Pulse Ox O2 Delivery O2 Flow Rate FiO2 05/31/25 17:36 16 96 Room Air* 0 21 05/31/25 16:11 Room Air* 0 21 05/31/25 15:00 70 12 148/64 (92) 97 05/31/25 13:31 98.9 72 14 131/57 (81) 97 98.9 05/31/25 09:21 98.5 77 12 160/70 98 98.5 Laboratory Tests Test 05/31/25 16:05 White Blood Count 9.3 10^3/uL (4.4-10.8) Medications Medications Dose Ordered Sig/Penelope Route Start Time Stop Time Status Last Admin Dose Admin Albuterol 20 mg ONCE ONCE NEB 05/31/25 17:30 05/31/25 17:31 DC 05/31/25 17:35 Docusate Sodium 100 mg ONCE ONCE PO 05/31/25 11:00 05/31/25 11:01 DC 05/31/25 11:11 Levofloxacin 500 mg ONCE ONCE PO 05/31/25 15:15 05/31/25 15:16 DC 05/31/25 15:55 Departure 1 Departure Time of Disposition: 10:09 Impression: Primary Impression: Hyperkalemia Additional Impression: Urinary tract infection Qualified Codes: N30.00 - Acute cystitis without hematuria Disposition: 02 SHORT TERM HOSPITAL Admit to: Med Surg Condition: Guarded Critical Care Note Critical Care Time?: No Stability Stability form required: No I personally scribed for ZHANE BEAL MD ([email or web address]) on 05/31/25 at 09:22. Electronically submitted by Oma Schultz ([email or web address]). I personally scribed for ZHANE BEAL MD ([email or web address]) on 05/31/25 at 11:08. Electronically submitted by Benjamin Wyman ([email or web address]). I personally scribed for ZHANE BEAL MD ([email or web address]) on 05/31/25 at 17:42. Electronically submitted by Benjamin Wyman ([email or web address]). ZHANE BEAL MD May 31, 2025 09:22
[2025-05-31 14:17] LABS: Urine Budding Yeast OCCASIONAL /hpf (None Seen); Urine Protein, UAD TRACE (Negative)
[2025-05-31] MEDS: levoFLOXacin 500 MG TAB PO ONE (15:55)
[2025-05-31 16:17] LABS: Hematocrit 45.5 % (36.0-46.0); Hemoglobin 15.0 g/dL (12.2-16.2); Mean Corpuscular Hemoglobin 31.3 pg (28.0-32.0); Mean Corpuscular Volume 94.8 fL (80.0-100.0); Nucleated Red Blood Cells % 0.1 %
[2025-05-31 16:26] LABS: Chloride 102 mmol/L (98-107)
[2025-05-31 16:27] LABS: Anion Gap 11 (5-15); Calcium 9.4 mg/dL (8.7-10.4); Carbon Dioxide 23 mmol/L (20-31)
[2025-05-31 16:28] LABS: Potassium 5.4 mmol/L (3.5-5.1); Sodium 136 mmol/L (136-145)
[2025-05-31 16:32] LABS: BUN/Creatinine Ratio 13.5 (10.0-20.0); Blood Urea Nitrogen 14 mg/dL (9-23); Glucose 84 mg/dL (74-106)
[2025-05-31] MEDS: ALBUTEROL SULF 2.5 MG/0.5ML(0.5%) NEB SOLN NEB ONE (17:35)
[2025-05-31] MEDS: DEXTROSE (50%) 50ML SYRG IV ONE (18:38)
[2025-05-31] MEDS: SODIUM BICARB 8.4% 50Meq/50ml SYR INJ IV ONE (18:38)
[2025-05-31] MEDS: InsuLIN REG 1unit/0.01ml Soln (100units/ml) IV ONE (18:39)
[2025-05-31] MEDS: SODIUM ZIRCONIUM CYCL 10 GM PAK PO ONE (18:48)
[2025-05-31] MEDS: FUROSEMIDE 20 MG/2 ML VIAL IV ONE (18:48)
[2025-05-31] MEDS: CALCIUM GLUC 1,000mg/50ml-NS 50 ML IV ONE (19:09)
[2025-05-31 19:33] VITALS: RESP 14; O2SAT 97
[2025-06-01] MEDS: LACTULOSE 20Gm/30ML SOLN PO ONE (01:04)
[2025-06-01 09:32] VITALS: RESP 18; O2SAT 98
[2025-06-01] MEDS ORDERED: HYDROcodone-ACET 5/325MG TAB PO ONE (11:00)
[2025-06-01] MEDS: HYDROcodone-ACET 5/325MG TAB PO ONE (12:47)
[2025-06-01 13:45] VITALS: BP 141/51; PULSE 88; RESP 17; TEMP 98.7; O2SAT 93
== END 2025-06-01 13:45 | disposition short-term general hospital (02) ==
LOC: EDBD 09:11 → ER 09:11
DX: N39.0 Urinary tract infection, site not specified (principal); E87.5 Hyperkalemia; I10 Essential (primary) hypertension; F03.93 Unspecified dementia, unspecified severity, with mood disturbance; F32.A Depression, unspecified; Z88.0 Allergy status to penicillin; Z88.1 Allergy status to other antibiotic agents; Z79.899 Other long term (current) drug therapy; Z88.2 Allergy status to sulfonamides
CPT/HCPCS: 36415; 74018; 80048; 81001; 84132; 85025; 94640; 96365; 96375; 99285; J0613; J1815; J1938; J7042